=== PATIENT | female | born 1990 | race African-American/Black ===

== ENCOUNTER 2022-05-29 21:34 | Inpatient (IN) | payer MEDICARE, OTHER ==
[2022-05-29] MEDS ORDERED: HYDROmorphone 1 MG/ML 1 ML SYRINGE IM STA (22:41)
[2022-05-30] MEDS ORDERED: AMPICILLIN-SULBACTAM 3 GM in SODIUM CHLORIDE 0.9% 100 ML IVPB STA (00:03)
[2022-05-30] MEDS ORDERED: VANCOMYCIN IV PER PHARMACY 1 EACH MISC MISCELLANE PRN (00:05)
[2022-05-30] MEDS ORDERED: NALOXONE 0.4 MG/ML 1 ML VIAL IV PRN (00:06)
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
[2022-05-30] MEDS: HYDROmorphone 1 MG/ML 1 ML SYRINGE IVP PRN ×4 (00:59→10:18)
[2022-05-30] MEDS ORDERED: VANCOMYCIN 1,250 MG in SODIUM CHLORIDE 0.9% 250 ML IVPB ONE (01:00)
[2022-05-30 01:37] LABS: Anisocytosis Slight; Basophils % (A) 1 %; Eosinophils # (A) 0.1 k/uL (0-0.7); Eosinophils % (A) 1 %; HCT 29.5 % (34.0-46.0); HGB 9.4 gm/dL (11.4-16.0); Hypochromasia Slight; Lymphocytes # (A) 2.3 k/uL (1.0-4.8); Lymphocytes % (A) 31 %; MCH 26.8 pg (25.0-35.0); MCV 83.7 fL (80.0-100.0); Mean Platelet Volume 8.2; Monocytes # (A) 0.5 k/uL (0-1.0); Monocytes % (A) 7 %; Neutrophils # (A) 4.4 k/uL (1.3-7.7); Neutrophils % (A) 59 %; Platelet Count 284 k/uL (150-450); RBC 3.52 m/uL (3.80-5.40); RDW 18.6 % (11.5-15.5); WBC 7.5 k/uL (3.8-10.6)
[2022-05-30 01:45] LABS: ALT 11 U/L (4-34); AST 20 U/L (14-36); African American GFR (CKD) >90 (>60 ml/min/1.73 sqM); Albumin 3.8 g/dL (3.5-5.0); Alkaline Phosphatase 110 U/L (38-126); Anion Gap 8 mmol/L; Blood Urea Nitrogen 12 mg/dL (7-17); Calcium 8.9 mg/dL (8.4-10.2); Carbon Dioxide 21 mmol/L (22-30); Chloride 107 mmol/L (98-107); Glucose 77 mg/dL (74-99); Non-African American GFR(CKD) >90 (>60 ml/min/1.73 sqM); Potassium 3.7 mmol/L (3.5-5.1); Sodium 136 mmol/L (137-145); Total Bilirubin 0.2 mg/dL (0.2-1.3); Total Protein 7.2 g/dL (6.3-8.2)
[2022-05-30] MEDS ORDERED: HYDROmorphone 0.5 MG/0.5 ML SYRINGE IVP STA (02:04)
[2022-05-30 06:57] LABS: Appearance,Urine Clear (Clear); Bilirubin,Urine Negative (Negative); Blood,Urine Negative (Negative); Color,Urine Light Yellow; Glucose,Urine (UA) Negative (Negative); Ketones,Urine Negative (Negative); Leukocyte Esterase,Urine Negative (Negative); Nitrite,Urine Negative (Negative); PH, Urine 6.5 (5.0-8.0); Protein,Urine Negative (Negative); Specific Gravity,Urine 1.011 (1.001-1.035); Urobilinogen,Urine <2.0 mg/dL (<2.0)
[2022-05-30 07:14] LABS: Amphetamine Screen,Urine Not Detected (NotDetected); Barbiturate Screen,Urine Not Detected (NotDetected); Benzodiazepines Screen,Urine Detected (NotDetected); Cocaine Screen,Urine Not Detected (NotDetected); Methadone Screen, Urine Not Detected (NotDetected); Opiate Screen,Urine Detected (NotDetected); Oxycodone Screen, Urine Detected (NotDetected); Phencyclidine Screen,Urine Not Detected (NotDetected); Tricyclic Antidepressant,Urine Not Detected (NotDetected); Urn Cannabinoid Scrn Detected (NotDetected)
[2022-05-30] MEDS: KETOROLAC 15 MG/ML 1 ML VIAL IVP PRN ×2 (09:09→15:42)
[2022-05-30] MEDS: FAMOTIDINE 20 MG TAB PO SCH ×2 (09:09→21:08)
[2022-05-30] MEDS ORDERED: NON FORMULARY DRUG (Naloxone Hcl [Narcan] 4 MG Each) NASAL PRN (10:22)
[2022-05-30] MEDS ORDERED: SENNOSIDES 8.6 MG TAB PO PRN (10:22)
[2022-05-30] MEDS ORDERED: ONDANSETRON 4 MG TAB PO PRN (10:22)
[2022-05-30] MEDS ORDERED: polyethylene glycoL 3350 17 GM POWD.PACK PO PRN (10:22)
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
[2022-05-30] MEDS: VANCOMYCIN 1,000 MG in SODIUM CHLORIDE 0.9% 250 ML IVPB SCH ×2 (10:30→21:07)
[2022-05-30] MEDS: MORPHINE SULFATE ER 15 MG TABLET PO SCH ×2 (10:52→22:45)
--- NOTE | 2022-05-30 12:43 | US ---
EXAMINATION TYPE: US venous doppler duplex LE RT DATE OF EXAM: 05/30/2022 12:07 PM COMPARISON: NONE CLINICAL HISTORY: DVT. SIDE PERFORMED: Right TECHNIQUE: The lower extremity deep venous system is examined utilizing real time linear array sonog jasmina with graded compression, doppler sonography and color-flow sonography. VESSELS IMAGED: Common Femoral Vein Deep Femoral Vein Greater Saphenous Vein * Femoral Vein Small Saphenous Vein * (* superficial vessels) Patient states she gets calcium deposits in her skin that cause her extreme pain, unable to do comp ression images and unable to scan behind her knee at all due to patient in too much pain Right Leg: Visualized portions appear negative for DVT Multiple lymph nodes right groin with largest measuring 3.1cm IMPRESSION: 1. Right lower thyroid ultrasound negative for deep venous thrombosis. 2. Old large right inguinal lymph nodes. 3. Examination very limited due to patient symptoms.
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
[2022-05-30] MEDS: APIXABAN 5 MG TAB PO SCH ×2 (14:31→21:08)
[2022-05-30] MEDS ORDERED: ONDANSETRON 4 MG/2 ML VIAL IVP PRN (15:07)
[2022-05-30] MEDS: FLUoxetine HCL 20 MG CAP PO SCH (15:42)
[2022-05-30] MEDS: GABAPENTIN 300 MG CAP PO SCH ×2 (15:42→21:08)
[2022-05-30] MEDS: HYDROmorphone 2 MG TAB PO PRN ×2 (16:07→21:08)
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
[2022-05-30] MEDS: HYDROcodone/APAP 5-325MG 1 EACH TAB PO PRN (18:36)
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
[2022-05-30] MEDS: OLANZapine 5 MG TAB PO SCH (22:46)
[2022-05-31] MEDS: VANCOMYCIN 1,000 MG in SODIUM CHLORIDE 0.9% 250 ML IVPB SCH ×4 (03:03→18:02)
[2022-05-31] MEDS: HYDROmorphone 2 MG TAB PO PRN (07:22)
[2022-05-31] MEDS ORDERED: metHOTREXate sodium 2.5 MG TAB PO SCH (09:00)
[2022-05-31] MEDS ORDERED: VANCOMYCIN TROUGH DUE 1 EACH MISC MISCELLANE ONE (09:00)
[2022-05-31] MEDS: GABAPENTIN 300 MG CAP PO SCH ×3 (09:23→21:18)
[2022-05-31] MEDS: predniSONE 20 MG TAB PO SCH (09:23)
[2022-05-31] MEDS: FAMOTIDINE 20 MG TAB PO SCH ×2 (09:23→21:18)
[2022-05-31] MEDS: FLUoxetine HCL 20 MG CAP PO SCH (09:23)
[2022-05-31] MEDS: FOLIC ACID 1 MG TAB PO SCH (09:23)
[2022-05-31] MEDS: ENOXAPARIN 40 MG/0.4 ML SYRINGE SQ SCH (09:36)
[2022-05-31] MEDS: MORPHINE SULFATE ER 15 MG TABLET PO SCH ×2 (10:05→21:41)
--- NOTE | 2022-05-31 10:23 | P.PN ---
Subjective Progress Note Date: 05/31/22 Patient was evaluated this morning as she continues to have pain. She reports that oral pain medications are not helping her. She reports her pain is sometimes on 10 stairs her body. She describes generalized pain throughout her joints and throughout her legs due to open sores she describes are related to lupus. She feels that the pain medications she is receiving are not adequate, she feels that IV Dilaudid was helpful. She is requesting one single dose despite the fact that explained to her that really would not help with her overall picture. She denies any bowel or bladder incontinence or any acute issues with pain. She reports this pain has been chronic and she has been seen in the [facility] but has not seen a pain clinic as of yet. I reviewed her MAPS this morning and I see that she has been receiving pain medications from the [facility] since February 2022. Medications have included morphine 15 mg immediate release times a day. He was also recent prescription from [place] for a few tablets of [place] 5 mg. I do not see are not other scripts from other states. Objective - Vital Signs Vital signs: Vital Signs Temp 98.6 F 05/31/22 07:54 Pulse 75 05/31/22 07:54 Resp 17 05/31/22 07:54 BP 91/55 05/31/22 07:54 Pulse Ox 100 05/31/22 07:54 FiO2 Intake & Output 05/30/22 05/31/22 05/31/22 18:59 06:59 18:59 Weight 65.317 kg Other: # Voids 1 - Exam Gen. exam reveals a female who is in no significant distress. She is awake and alert. Cervical spine exam reveals midline alignment with free range of motion. Upper extremity strength is normal. Skin exam reveals multiple areas of scarring in the lower and upper extremities. Left upper extremity is bandaged. These areas are tender to touch. There are no significant open sores. There does not appear to be any fluctuance. There is no drainage noted. Psych exam reveals a cooperative patient. He is in no distress. She answered questions appropriately - Labs CBC & Chem 7: 05/30/22 00:50 05/30/22 00:50 Labs: Microbiology - Last 24 Hours (Table) 05/30/22 00:26 Gram Stain - Preliminary Arm - Right Wound Culture - Preliminary Presumptive MRSA 08/03/22 00:55 Blood Culture - Preliminary Blood No Growth after 24 hours Assessment and Plan Assessment: #1 chronic pain #2 possible lupus #3 skin lesions Plan: I reviewed the patient that using IV pain medications are not appropriate. At this point we could restart her home oral medications. I would recommend that she uses morphine extended release 15 mg 2 times a day as well as morphine immediate release 15 mg 2 times a day as needed. I would discontinue all other pain medications including hydrocodone and oral Dilaudid. I do not see any records of her using oral or IV Dilaudid anywhere else on her prescription history. I've explained to the patient using these pain medications would allow better control of her pain. I would begin the extended release morphine now a second dose later this evening. Yael Mendez MD Time with Patient: Less than 30
[2022-05-31 10:41] LABS: Basophils # (A) 0.04 X 10*3/uL (0.00-0.10); Basophils % (A) 0.9 %; Eosinophils # (A) 0.13 X 10*3/uL (0.04-0.35); Eosinophils % (A) 2.9 %; HCT 28.3 % (37.2-46.3); HGB 8.6 g/dL (12.0-15.0); Immature Grans, Automated 0.4 %; Lymphocytes # (A) 1.61 X 10*3/uL (0.90-5.00); MCH 25.5 pg (27.0-32.0); MCHC 30.4 g/dL (32.0-37.0); Mean Platelet Volume 10.6 fL (9.5-12.2); Monocytes # (A) 0.57 X 10*3/uL (0.20-1.00); Monocytes % (A) 12.8 %; NRBC Per 100 WBC 0 /100 WBCS (0.0-0.0); Platelet Count 305 X 10*3/uL (140-440); RBC 3.37 X 10*6/uL (4.10-5.20); RDW 18.9 % (11.5-14.5); WBC 4.47 X 10*3/uL (4.50-10.00)
[2022-05-31 11:00] LABS: ALT 10 U/L (8-44); AST 14 U/L (13-35); African American GFR (CKD) 137.8 (60.0-200.0); Albumin 3.4 g/dL (3.8-4.9); Albumin/Globulin Ratio 1.17 (1.60-3.17); Alkaline Phosphatase 81 U/L (41-126); BUN/Creat Ratio 14.83 Ratio (12.00-20.00); Blood Urea Nitrogen 8.9 mg/dL (9.0-27.0); Calcium 8.4 mg/dL (8.7-10.3); Carbon Dioxide 21.3 mmol/L (20.0-27.5); Chloride 109 mmol/L (96-109); Globulin 2.9 g/dL (1.6-3.3); Glucose 80 mg/dL (70-110); Non-African American GFR(CKD) 118.9 (60.0-200.0); Potassium 4.1 mmol/L (3.5-5.5); Sodium 139 mmol/L (135-145); Total Bilirubin <0.15 mg/dL (0.30-1.20); Total Protein 6.3 g/dL (6.2-8.2)
[2022-05-31] MEDS: HYDROcodone/APAP 5-325MG 1 EACH TAB PO PRN (11:14)
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
--- NOTE | 2022-05-31 13:40 | P.PN ---
Subjective Progress Note Date: 05/31/22 CHIEF COMPLAINT: Abscesses HISTORY OF PRESENT ILLNESS: Surgical service is following in regards to the ch ronic abscesses in patient's arms. She does report pain. She is followed by pain service they're adjusting pain medications. She also has been petitioned and is a evaluated by psychiatry service for her depression. Patient does continue to have some drainage from both arms. She does report that this is not new for her. She has been dealing with this calcium deposits since 2010. She was seen by a plastic surgeon in the past. Afebrile. WBC is 4.47 hgb 8.6 platelets 305 Patient seen and examined with Dr. Lott PHYSICAL EXAM: VITAL SIGNS: Reviewed. GENERAL: Well-developed in no acute distress. HEENT: No sclera icterus. Extraocular movements grossly intact. Moist buccal mucosa. Head is atraumatic, normocephalic. ABDOMEN: Soft. Nondistended. Nontender. NEUROLOGIC: Alert and oriented. Cranial nerves II through XII grossly intact. 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 There is chronic calcifications and scar tissue. There is an open area of ulceration on the right bicep. ASSESSMENT: 1. Abscesses of the right and left arm with active drainage 2. History of lupus 3. History of calcinosis cutis PLAN: -Recommend that patient follows up with plastic surgeon outpatient. Patient has been seen by a plastic surgeon in the past for these abscesses. These abscesses due to the calcium deposits are chronic for patient. -No surgical intervention planned -Antibiotics per ID service Physician Lens Examiner note has been reviewed by physician. Signing provider agrees with the documented findings, assessment, and plan of care. Objective - Vital Signs Vital signs: Vital Signs Temp 98.6 F 05/31/22 07:54 Pulse 100 05/31/22 11:15 Resp 17 05/31/22 07:54 BP 91/55 05/31/22 07:54 Pulse Ox 100 05/31/22 07:54 FiO2 Intake & Output 05/30/22 05/31/22 05/31/22 18:59 06:59 18:59 Output Total 0 Balance 0 Weight 65.317 kg Output: Urine 0 Other: # Voids 1 - Labs CBC & Chem 7: 05/31/22 08:17 05/31/22 08:17 Labs: Abnormal Lab Results - Last 24 Hours (Table) 05/31/22 05/31/22 Range/Units 08:17 08:17 WBC 4.47 L (4.50-10.00) X 10*3/uL RBC 3.37 L (4.10-5.20) X 10*6/uL Hgb 8.6 L (12.0-15.0) g/dL Hct 28.3 L (37.2-46.3) % MCH 25.5 L (27.0-32.0) pg MCHC 30.4 L (32.0-37.0) g/dL RDW 18.9 H (11.5-14.5) % Anion Gap 8.70 L (10.00-18.00) mmol/L BUN 8.9 L (9.0-27.0) mg/dL Calcium 8.4 L (8.7-10.3) mg/dL Total Bilirubin <0.15 L (0.30-1.20) mg/dL Albumin 3.4 L (3.8-4.9) g/dL Albumin/Globulin Ratio 1.17 L (1.60-3.17) g/dL Microbiology - Last 24 Hours (Table) 05/30/22 00:26 Gram Stain - Preliminary Arm - Right Wound Culture - Preliminary Presumptive MRSA 05/30/22 00:55 Blood Culture - Preliminary Blood No Growth after 24 hours
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
[2022-05-31] MEDS: MORPHINE SULFATE IR 15 MG TABLET PO PRN (15:35)
[2022-05-31] MEDS: OLANZapine 5 MG TAB PO SCH (21:18)
[2022-06-01] MEDS: VANCOMYCIN 1,000 MG in SODIUM CHLORIDE 0.9% 250 ML IVPB SCH ×2 (02:06→10:17)
[2022-06-01 04:33] VITALS: RESP 17
[2022-06-01] MEDS: MORPHINE SULFATE IR 15 MG TABLET PO PRN (07:01)
[2022-06-01] MEDS: FAMOTIDINE 20 MG TAB PO SCH (07:01)
[2022-06-01] MEDS: predniSONE 20 MG TAB PO SCH (07:01)
[2022-06-01] MEDS: FLUoxetine HCL 20 MG CAP PO SCH (07:01)
[2022-06-01] MEDS: GABAPENTIN 300 MG CAP PO SCH (07:01)
[2022-06-01] MEDS: FOLIC ACID 1 MG TAB PO SCH (07:01)
[2022-06-01] MEDS: ENOXAPARIN 40 MG/0.4 ML SYRINGE SQ SCH (07:02)
[2022-06-01 07:42] VITALS: BP 100/66; PULSE 86; TEMP 98
[2022-06-01] MEDS: MORPHINE SULFATE ER 15 MG TABLET PO SCH (10:18)
--- NOTE | 2022-06-02 00:21 | P.DS ---
Providers Date of admission: 05/30/22 00:06 Attending physician: Romario Bateman Consults: 05/30/22 00:06 Consult Physician Urgent Consulting Provider: Kameron Taylor Consult Reason/Comments: multiple abscesses Do you want consulting provider notified?: Yes 05/30/22 00:12 Consult Physician Urgent Consulting Provider: Aric Fu Consult Reason/Comments: depression, petitioned Do you want consulting provider notified?: Yes 05/30/22 09:00 Consult Physician Routine Consulting Provider: Zach Lott Consult Reason/Comments: abscess Do you want consulting provider notified?: Yes Primary care physician: Stated None Hospital Course: Patient left against medical advice. Blood culture came back positive for gram positive cocci and also MRSA shows resistance to bactrim which was cancelled on discharge. Discussed with patient importance of repeat cultures and staying in the hospital for vancomycin therapy she also does have port access to chest wall. Discussed the risks of discharge and advised patient medically she is not stable to discharge at this time. She is requesting to be discharged and also states she is out of all pain management medication and fixated on discharge pain medications. Advised to follow up with Dr Burr. She does have a [facility] to establish care. Patient does not want to stay in hospital. She left against medical advice. The impression and plan of care has been dictated by Samra Linda, Nurse Practitioner as directed. Dr. Geoffrey MD I have performed a history and physical examination and medical decision making of this patient, discussed the same with the dictator, and agree with the dictators assessment and plan as written, documented as a scribe. Based on total visit time, I have performed more than 50% of this visit. Patient Condition at Discharge: Undetermined Plan - Discharge Summary Discharge Rx Participant: No New Discharge Prescriptions: New OLANZapine [ZyPREXA] 5 mg PO HS #30 tab FLUoxetine HCL [PROzac] 20 mg PO DAILY #30 cap Continue Sennosides [Senokot] 8.6 mg PO DAILY PRN PRN Reason: Constipation polyethylene glycoL 3350 [Miralax] 17 gm PO DAILY PRN PRN Reason: Constipation Naloxone HCl [Narcan] 4 mg NASAL ONCE PRN PRN Reason: Overdose Morphine Sulfate ER [Ms Contin] 15 mg PO Q12H Ondansetron [Zofran] 4 mg PO TID PRN PRN Reason: Nausea And Vomiting Omeprazole 20 mg PO DAILY metHOTREXate sodium [Methotrexate] 15 mg PO TH Gabapentin 300 mg PO TID Folic Acid 1 mg PO DAILY Apixaban [Eliquis] 5 mg PO BID Alendronate Sodium [Fosamax] 70 mg PO TH Changed predniSONE [Deltasone] 40 mg PO DAILY #0 Discontinued HYDROcodone/APAP 5-325MG [[place] 5-325] 1 tab PO Q8H PRN PRN Reason: Pain Sulfamethox-Tmp 800-160Mg [Bactrim DS 800-160 mg] 1 tab PO MOWEFR HYDROmorphone [Dilaudid] 4 mg PO Q4-6H PRN PRN Reason: Pain Discharge Medication List Alendronate Sodium [Fosamax] 70 mg PO TH 05/30/22 [History] Apixaban [Eliquis] 5 mg PO BID 05/30/22 [History] Folic Acid 1 mg PO DAILY 05/30/22 [History] Gabapentin 300 mg PO TID 05/30/22 [History] Morphine Sulfate ER [Ms Contin] 15 mg PO Q12H 05/30/22 [History] Naloxone HCl [Narcan] 4 mg NASAL ONCE PRN 05/30/22 [History] Omeprazole 20 mg PO DAILY 05/30/22 [History] Ondansetron [Zofran] 4 mg PO TID PRN 05/30/22 [History] Sennosides [Senokot] 8.6 mg PO DAILY PRN 05/30/22 [History] metHOTREXate sodium [Methotrexate] 15 mg PO TH 05/30/22 [History] polyethylene glycoL 3350 [Miralax] 17 gm PO DAILY PRN 05/30/22 [History] FLUoxetine HCL [PROzac] 20 mg PO DAILY #30 cap 05/31/22 [Rx] OLANZapine [ZyPREXA] 5 mg PO HS #30 tab 05/31/22 [Rx] predniSONE [Deltasone] 40 mg PO DAILY #0 05/31/22 [Rx] Follow up Appointment(s)/Referral(s): [facility], [facility] [Other] - 06/05/22 Faith Burr MD [STAFF PHYSICIAN] - 1 Week None,Stated [Primary Care Provider] - 1-2 days Kameron Taylor MD [STAFF PHYSICIAN] - 1 Week Activity/Diet/Wound Care/Special Instructions: Patient recommended to see plastic surgeon outpatient reguarding abscesses Patient strongly advised to stay to await blood cultures Discharge/Stand Alone Forms: Outpatient Counseling Discharge Disposition: Left Against Medical Advice
== END 2022-06-01 11:25 | disposition left against medical advice (07) | DRG 603 ==
LOC: EC 21:34 → 4SSUR 05-30 00:06
PROVIDERS: ADMIT Hospitalist; ATTEND Hospitalist
DX: L02.414 Cutaneous abscess of left upper limb (principal); F32.3 Major depressive disorder, single episode, severe with psychotic features; F11.20 Opioid dependence, uncomplicated; L02.511 Cutaneous abscess of right hand; R45.851 Suicidal ideations; Z16.29 Resistance to other single specified antibiotic; B95.62 Methicillin resistant Staphylococcus aureus infection as the cause of diseases classified elsewhere; E11.9 Type 2 diabetes mellitus without complications; G89.29 Other chronic pain; I48.0 Paroxysmal atrial fibrillation; M32.9 Systemic lupus erythematosus, unspecified; Z53.29 Procedure and treatment not carried out because of patient's decision for other reasons; Z59.01 Sheltered homelessness; Z79.01 Long term (current) use of anticoagulants; Z79.83 Long term (current) use of bisphosphonates; Z79.899 Other long term (current) drug therapy; Z56.0 Unemployment, unspecified; Z28.310 Unvaccinated for COVID-19; Z28.21 Immunization not carried out because of patient refusal; Z63.4 Disappearance and death of family member; Z79.52 Long term (current) use of systemic steroids
CPT/HCPCS: 80053; 80202; 80306; 81003; 81025; 83605; 85025; 87040; 87070; 87077; 87186; 87205; 96365; 96368; 96375; 96376; 99285

== ENCOUNTER 2022-06-06 13:21 | Inpatient (IN) | payer MEDICARE, OTHER ==
--- NOTE | 2022-06-06 13:59 | ED ---
General Adult HPI - General Source: patient, EMS, RN notes reviewed Mode of arrival: EMS Limitations: no limitations <Paulino Grayson - Last Filed: 06/06/22 14:23> <April King - Last Filed: 06/06/22 18:38> - General Chief complaint: Chest Pain Stated complaint: Chest Pain Time Seen by Provider: 06/06/22 13:27 - History of Present Illness Initial comments: Patient is a pleasant 32-year-old female presenting to the emergency department with concerns for chest discomfort. Patient states she was in the hospital se veral days ago and left AGAINST MEDICAL ADVICE secondary to family emergency. Patient states she was supposed to continue IV antibiotics. Patient started developing chest discomfort yesterday. Patient describes discomfort as pressure. Patient has had this once previously with atrial fibrillation. Patient states there is some discomfort of her back as well. Patient states she does get wounds secondary to her history of dermatomyositis. (Paulino Grayson) - Related Data Home Medications Medication Instructions Recorded Confirmed Alendronate Sodium [Fosamax] 70 mg PO TH 05/30/22 06/06/22 Apixaban [Eliquis] 5 mg PO BID 05/30/22 06/06/22 Folic Acid 1 mg PO DAILY 05/30/22 06/06/22 Gabapentin 300 mg PO TID 05/30/22 06/06/22 Morphine Sulfate ER [Ms Contin] 15 mg PO Q12H 05/30/22 06/06/22 Naloxone HCl [Narcan] 4 mg NASAL ONCE PRN 05/30/22 06/06/22 Omeprazole 20 mg PO DAILY 05/30/22 06/06/22 Ondansetron [Zofran] 4 mg PO TID PRN 05/30/22 06/06/22 Sennosides [Senokot] 8.6 mg PO DAILY PRN 05/30/22 06/06/22 metHOTREXate sodium [Methotrexate] 15 mg PO TH 05/30/22 06/06/22 polyethylene glycoL 3350 [Miralax] 17 gm PO DAILY PRN 05/30/22 06/06/22 Previous Rx's Medication Instructions Recorded FLUoxetine HCL [PROzac] 20 mg PO DAILY #30 cap 05/31/22 OLANZapine [ZyPREXA] 5 mg PO HS #30 tab 05/31/22 predniSONE [Deltasone] 40 mg PO DAILY #0 05/31/22 Allergies Allergy/AdvReac Type Severity Reaction Status Date / Time No Known Allergies Allergy Verified 06/06/22 13:58 Review of Systems ROS Other: All systems not noted in ROS Statement are negative. Constitutional: Denies: fever Eyes: Denies: eye pain ENT: Denies: ear pain Respiratory: Denies: cough Cardiovascular: Reports: as per HPI, chest pain Endocrine: Denies: fatigue Gastrointestinal: Denies: abdominal pain Genitourinary: Denies: dysuria Musculoskeletal: Reports: as per HPI, back pain Skin: Reports: lesions Neurological: Denies: weakness <Paulino Grayson - Last Filed: 06/06/22 14:23> ROS Other: All systems not noted in ROS Statement are negative. <April King - Last Filed: 06/06/22 18:38> ROS Statement: Those systems with pertinent positive or pertinent negative responses have been documented in the HPI. Past Medical History Past Medical History: Atrial Fibrillation, Diabetes Mellitus Additional Past Medical History / Comment(s): lupus History of Any Multi-Drug Resistant Organisms: None Reported Past Surgical History: No Surgical Hx Reported Past Anesthesia/Blood Transfusion Reactions: Unable to Obtain Additional Past Anesthesia/Blood Transfusion Reaction / Comment(s): Pt denies ever having had surgery. Past Psychological History: No Psychological Hx Reported Past Alcohol Use History: None Reported Past Drug Use History: None Reported - Past Family History Father History Unknown: Yes Additional Family Medical History / Comment(s): Pt states she is an orphan. Mother History Unknown: Yes Additional Family Medical History / Comment(s): Pt states she is an orphan. <Paulino Grayson - Last Filed: 06/06/22 14:23> General Exam Limitations: no limitations General appearance: alert, in no apparent distress Head exam: Present: normocephalic Eye exam: Present: normal appearance Neck exam: Present: normal inspection Respiratory exam: Present: normal lung sounds bilaterally. Absent: chest wall tenderness Cardiovascular Exam: Present: regular rate, normal rhythm Expanded Peripheral pulses: 2+: Radial (R), Radial (L), Dorsalis Pedis (R), Dorsalis Pedis (L) GI/Abdominal exam: Present: soft. Absent: tenderness Extremities exam: Present: normal inspection Neurological exam: Present: alert Psychiatric exam: Present: normal affect, normal mood Skin exam: Present: other (Left posterior arm ulcer with mild purulent drainage. There is firmness near this which patient attributes to calcifications) <Paulino Grayson - Last Filed: 06/06/22 14:23> Course Vital Signs 06/06/22 06/06/22 13:30 16:43 Temperature 98 F Pulse Rate 100 95 Respiratory 20 18 Rate Blood Pressure 126/89 112/76 O2 Sat by Pulse 97 98 Oximetry EKG Findings - EKG Comments: EKG Findings:: Sinus rhythm with a rate of 76. CT 138. QRS 73. QT 385. QTC 416. Normal axis. Low QRS.. No acute ST change <Paulino Grayson - Last Filed: 06/06/22 14:23> Medical Decision Making - Lab Data Result diagrams: 06/06/22 15:33 06/06/22 15:33 <April King - Last Filed: 06/06/22 18:38> - Medical Decision Making I evaluated the patient myself. Patient given nitro and aspirin for pain. Lab studies are conducted and reviewed. D-dimer elevated at 1.4. Troponin is negative. Patient is sent for a CT which does not demonstrate a pulmonary embolism. Blood cultures are obtained and she is started on clindamycin. Patient will be admitted for history of positive blood cultures and asked pain. Spoke with Samra from [facility] who agreed to admit the patient. (April King) - Lab Data Lab Results 06/06/22 06/06/22 06/06/22 Range/Units 15:33 15:33 15:33 WBC 5.1 (3.8-10.6) k/uL RBC 3.97 (3.80-5.40) m/uL Hgb 10.5 L (11.4-16.0) gm/dL Hct 33.3 L (34.0-46.0) % MCV 84.0 (80.0-100.0) fL MCH 26.4 (25.0-35.0) pg MCHC 31.4 (31.0-37.0) g/dL RDW 18.4 H (11.5-15.5) % Plt Count 329 (150-450) k/uL MPV 7.5 Neutrophils % 64 % Lymphocytes % 23 % Monocytes % 8 % Eosinophils % 3 % Basophils % 1 % Neutrophils # 3.2 (1.3-7.7) k/uL Lymphocytes # 1.2 (1.0-4.8) k/uL Monocytes # 0.4 (0-1.0) k/uL Eosinophils # 0.1 (0-0.7) k/uL Basophils # 0.0 (0-0.2) k/uL Hypochromasia Slight Anisocytosis Slight PT 10.1 (9.0-12.0) sec INR 0.9 (<1.2) APTT 22.9 (22.0-30.0) sec D-Dimer 1.43 H (<0.60) mg/L FEU Sodium 136 L (137-145) mmol/L Potassium 4.4 (3.5-5.1) mmol/L Chloride 104 (98-107) mmol/L Carbon Dioxide 21 L (22-30) mmol/L Anion Gap 11 mmol/L BUN 14 (7-17) mg/dL Creatinine 0.51 L (0.52-1.04) mg/dL Est GFR (CKD-EPI)AfAm >90 (>60 ml/min/1.73 sqM) Est GFR (CKD-EPI)NonAf >90 (>60 ml/min/1.73 sqM) Glucose 78 (74-99) mg/dL Calcium 8.8 (8.4-10.2) mg/dL Total Bilirubin 0.4 (0.2-1.3) mg/dL AST 21 (14-36) U/L ALT 15 (4-34) U/L Alkaline Phosphatase 97 (38-126) U/L Troponin I (0.000-0.034) ng/mL Total Protein 7.6 (6.3-8.2) g/dL Albumin 4.0 (3.5-5.0) g/dL 06/06/22 Range/Units 15:33 WBC (3.8-10.6) k/uL RBC (3.80-5.40) m/uL Hgb (11.4-16.0) gm/dL Hct (34.0-46.0) % MCV (80.0-100.0) fL MCH (25.0-35.0) pg MCHC (31.0-37.0) g/dL RDW (11.5-15.5) % Plt Count (150-450) k/uL MPV Neutrophils % % Lymphocytes % % Monocytes % % Eosinophils % % Basophils % % Neutrophils # (1.3-7.7) k/uL Lymphocytes # (1.0-4.8) k/uL Monocytes # (0-1.0) k/uL Eosinophils # (0-0.7) k/uL Basophils # (0-0.2) k/uL Hypochromasia Anisocytosis PT (9.0-12.0) sec INR (<1.2) APTT (22.0-30.0) sec D-Dimer (<0.60) mg/L FEU Sodium (137-145) mmol/L Potassium (3.5-5.1) mmol/L Chloride (98-107) mmol/L Carbon Dioxide (22-30) mmol/L Anion Gap mmol/L BUN (7-17) mg/dL Creatinine (0.52-1.04) mg/dL Est GFR (CKD-EPI)AfAm (>60 ml/min/1.73 sqM) Est GFR (CKD-EPI)NonAf (>60 ml/min/1.73 sqM) Glucose (74-99) mg/dL Calcium (8.4-10.2) mg/dL Total Bilirubin (0.2-1.3) mg/dL AST (14-36) U/L ALT (4-34) U/L Alkaline Phosphatase (38-126) U/L Troponin I <0.012 (0.000-0.034) ng/mL Total Protein (6.3-8.2) g/dL Albumin (3.5-5.0) g/dL Disposition <Paulino Grayson - Last Filed: 06/06/22 14:23> Is patient prescribed a controlled substance at d/c from ED?: No Time of Disposition: 18:38 Decision to Admit Reason: Admit from EC Decision Date: 06/06/22 Decision Time: 18:38 <April King - Last Filed: 06/06/22 18:38> Clinical Impression: Abscess of multiple sites, Positive blood culture, Chest pain Disposition: ADMITTED IP TO THIS [facility] Condition: Stable Referrals: None,Stated [Primary Care Provider] - 1-2 days
--- NOTE | 2022-06-06 14:21 | XR ---
EXAMINATION TYPE: XR chest 2V DATE OF EXAM: 06/06/2022 2:06 PM COMPARISON: None TECHNIQUE: XR chest 2V Frontal and lateral views of the chest. CLINICAL INDICATION:Female, 32 years old with history of Fever; FINDINGS: Lungs/Pleura: There is no evidence of pleural effusion, focal consolidation, or pneumothorax. Pulmonary vascularity: Unremarkable. Heart/mediastinum: Cardiomediastinal silhouette is unremarkable. Musculoskeletal/soft tissues: No acute osseous pathology. Innumerable hyperdense soft tissue calcific ations demonstrated throughout the bilateral chest and visualized upper extremities. Lines/Tubes: Right chest wall Mediport catheter terminates in the low SVC. IMPRESSION: * No acute cardiopulmonary disease/process. * Innumerable hyperdense soft tissue calcifications identified throughout the bilateral chest and vi sualized upper extremities. Correlation with clinical history is recommended.
[2022-06-06 15:56] LABS: Anisocytosis Slight; HCT 33.3 % (34.0-46.0); HGB 10.5 gm/dL (11.4-16.0); Hypochromasia Slight; MCH 26.4 pg (25.0-35.0); MCHC 31.4 g/dL (31.0-37.0); Mean Platelet Volume 7.5; Neutrophils % (A) 64 %; Platelet Count 329 k/uL (150-450); RBC 3.97 m/uL (3.80-5.40); RDW 18.4 % (11.5-15.5); WBC 5.1 k/uL (3.8-10.6)
[2022-06-06 15:57] LABS: Basophils % (A) 1 %; Eosinophils # (A) 0.1 k/uL (0-0.7); Eosinophils % (A) 3 %; Lymphocytes # (A) 1.2 k/uL (1.0-4.8); Lymphocytes % (A) 23 %; Monocytes # (A) 0.4 k/uL (0-1.0); Monocytes % (A) 8 %; Neutrophils # (A) 3.2 k/uL (1.3-7.7)
[2022-06-06] MEDS ORDERED: NITROGLYCERIN SL TABS 0.4 MG TAB SUBLINGUAL STA (16:05)
[2022-06-06 16:07] LABS: INR 0.9 (<1.2)
[2022-06-06 16:08] LABS: Partial Thromboplastin Time 22.9 sec (22.0-30.0); Prothrombin Time 10.1 sec (9.0-12.0)
[2022-06-06 16:15] LABS: ALT 15 U/L (4-34); AST 21 U/L (14-36); African American GFR (CKD) >90 (>60 ml/min/1.73 sqM); Alkaline Phosphatase 97 U/L (38-126); Anion Gap 11 mmol/L; Blood Urea Nitrogen 14 mg/dL (7-17); Calcium 8.8 mg/dL (8.4-10.2); Carbon Dioxide 21 mmol/L (22-30); Chloride 104 mmol/L (98-107); Glucose 78 mg/dL (74-99); Non-African American GFR(CKD) >90 (>60 ml/min/1.73 sqM); Potassium 4.4 mmol/L (3.5-5.1); Sodium 136 mmol/L (137-145); Total Bilirubin 0.4 mg/dL (0.2-1.3); Total Protein 7.6 g/dL (6.3-8.2)
--- NOTE | 2022-06-06 17:22 | CT ---
EXAMINATION TYPE: CT chest angio for PE CT DLP: 252.1 mGycm, Automated exposure control for dose reduction was used. DATE OF EXAM: 06/06/2022 5:00 PM COMPARISON: Chest radiograph from same day. CLINICAL INDICATION:Female, 32 years old with history of elevated d-dimer; Elevated d-dimer chest karen n Hx afib TECHNIQUE/CONTRAST: CTA scan of the thorax is performed with IV Contrast, patient injected with 100 mL of Isovue 370, pul monary embolism protocol. MIP images are created and reviewed. FINDINGS: Pulmonary Artery: There is no evidence for a filling defect within the pulmonary vasculature to sugge st acute pulmonary embolism. The pulmonary artery is of normal size. Lungs/Pleura: No evidence of focal consolidation, pleural effusion or pneumothorax. Airway: Large airways are patent. Heart: Heart is within normal limits for size.. Vasculature: No evidence of aortic aneurysm. [id number] with distal tip projecting at the superior vena cava. Mediastinum: No gross evidence of adenopathy. Musculoskeletal: No acute osseous abnormalities Soft Tissues: Diffuse subcutaneous calcifications are seen throughout the skin. Lower neck: No significant findings. Upper Abdomen: No significant findings. IMPRESSION: 1. No evidence of pulmonary embolism. 2. Diffuse scattered subcutaneous calcifications.
[2022-06-06] MEDS ORDERED: HYDROmorphone 1 MG/ML 1 ML SYRINGE IVP STA (18:18)
[2022-06-06] MEDS ORDERED: CLINDAMYCIN 600 MG/50 ML-D5W 600 MG in DEXTROSE/WATER 1 50ML.BAG IVPB STA (18:29)
[2022-06-06] MEDS ORDERED: ASPIRIN 81 MG PO STA (18:33)
[2022-06-06] MEDS ORDERED: NALOXONE 0.4 MG/ML 1 ML VIAL IV PRN (18:38)
[2022-06-06] MEDS ORDERED: ONDANSETRON 4 MG TAB PO PRN (19:07)
[2022-06-06] MEDS: MORPHINE SULFATE ER 15 MG TABLET PO SCH (20:44)
[2022-06-06] MEDS ORDERED: OLANZapine 5 MG TAB PO SCH (21:00)
[2022-06-06] MEDS: GABAPENTIN 300 MG CAP PO SCH (21:18)
[2022-06-06] MEDS: APIXABAN 5 MG TAB PO SCH (23:43)
[2022-06-06] MEDS: MORPHINE SULFATE IR 15 MG TABLET PO PRN (23:43)
[2022-06-07] MEDS ORDERED: CLINDAMYCIN 600 MG/50 ML-D5W 600 MG in DEXTROSE/WATER 1 50ML.BAG IVPB SCH (03:00)
[2022-06-07] MEDS: PANTOPRAZOLE 40 MG TABLET PO SCH (06:49)
[2022-06-07] MEDS: MORPHINE SULFATE ER 15 MG TABLET PO SCH ×2 (08:51→20:43)
[2022-06-07] MEDS: GABAPENTIN 300 MG CAP PO SCH ×3 (08:51→20:45)
[2022-06-07] MEDS: MORPHINE SULFATE IR 15 MG TABLET PO PRN ×2 (08:52→18:30)
[2022-06-07] MEDS: FOLIC ACID 1 MG TAB PO SCH (08:52)
[2022-06-07] MEDS: APIXABAN 5 MG TAB PO SCH ×2 (08:52→20:45)
[2022-06-07] MEDS ORDERED: FLUoxetine HCL 20 MG CAP PO SCH (09:00)
[2022-06-07 09:03] LABS: Anisocytosis Slight; Basophils % (A) 1 %; Eosinophils # (A) 0.2 k/uL (0-0.7); Eosinophils % (A) 4 %; HCT 30.6 % (34.0-46.0); HGB 9.6 gm/dL (11.4-16.0); Hypochromasia Slight; Lymphocytes # (A) 1.2 k/uL (1.0-4.8); Lymphocytes % (A) 28 %; MCH 26.8 pg (25.0-35.0); MCHC 31.4 g/dL (31.0-37.0); MCV 85.4 fL (80.0-100.0); Mean Platelet Volume 7.5; Monocytes # (A) 0.4 k/uL (0-1.0); Monocytes % (A) 9 %; Neutrophils # (A) 2.4 k/uL (1.3-7.7); Neutrophils % (A) 56 %; Platelet Count 293 k/uL (150-450); RBC 3.58 m/uL (3.80-5.40); RDW 18.5 % (11.5-15.5); WBC 4.2 k/uL (3.8-10.6)
[2022-06-07] MEDS ORDERED: HYDROmorphone 0.5 MG/0.5 ML SYRINGE IVP STA (09:05)
[2022-06-07] MEDS ORDERED: SODIUM CHLORIDE 0.9% 500 ML 500 ML IV ONE (09:06)
[2022-06-07] MEDS ORDERED: HYDROmorphone 1 MG/ML 1 ML SYRINGE IVP STA (09:16)
--- NOTE | 2022-06-07 09:25 | P.HPIM ---
History of Present Illness This is a pleasant 52 years old -[place] Citizen female with past medical history of atrial fibrillation on Eliquis, systemic lupus erythematosus versus dermatomyositis and she is currently on a prednisone and methotrexate, chronic pain syndrome on MS Contin 15 mg twice daily, gabapentin, depression on Prozac and Zyprexa Patient was recently in this facility 05/30-06/01 when she left AMA for family emergency as she confirms today She has positive blood culture from 05/30 for MRSA and another possible culture from 05/30 for staph epidermidis and coagulase negative the staph Patient was sitting, intubated looks comfortable not in distress. Patient states she came to the hospital because she has a lot of chest pain, a lot of arm pain, pain between shoulder blades, and her left arm and legs and all over. She is also complaining of from diarrhea about 4 times per day with no blood, dark Green or brown in color, it has been going on for the last 2 days. No abdominal pain or nausea vomiting. She denies urinary symptoms, no headache or dizziness or weakness or numbness. She smokes SOMETIMES hookah and she was counseled to quit and she agrees and she agrees to the nicotine patch. She denies alcohol or illicit drugs. She states she has history of breast spelled E, she was diagnosed by a physician and [facility] in 2010 when she had menarche rash, generalized weakness and multiple skin lesions and opening since then. Currently she has alt of scar tissue in her arms, shoulders, proximal thighs. She has 2 open w ounds about half inch in diameter in both left and right upper arm with no surrounding cellulitis but there is some yellow purulent discharge but scant. Also the result of scar tissue on the right leg and no open wounds (very tiny pinpoint wound on the right leg, it did not feel to be of significance for patient's symptomatology) Patient states that she supposed to be on methotrexate, folic acid, prednisone, also she supposed to be an Eliquis for her A. fib. She has no video technician and her if it has been managed by her PCP. She could not remember the name of her PCP but states that he is in [facility]. She feels depressed but she denies homicidal or suicidal ideation, no hallucina tion Vitals looks stable and patient is afebrile. Unremarkable CBC, INR, BMP and Liver Enzymes. Troponin Is Negative Less Than 0.012. D-Dimer Elevated 1.4. CTA of the chest is negative for PE, diffuse scattered subcutaneous calcification EKG showing normal sinus rhythm at [address]-T changes On admission patient was started on clindamycin and received Dilaudid IV 1 mg 1 She did see pain management in consultation and recommendations are for discontinuation of pain medications with exception of Morphine 15 mg extended release twice a day and to use Morphine IR 15 mg twice a day as needed for breakthrough pain Review of Systems Review of systems CONSTITUTIONAL: No fever, no malaise, no fatigue. HEENT: No recent visual problems or hearing problems. Denied any sore throat. CARDIOVASCULAR: No orthopnea, PND, no palpitations, no syncope. PULMONARY: No shortness of breath, no cough, no hemoptysis. GASTROINTESTINAL: no nausea, no vomiting, no abdominal pain. Normoactive bowel sounds. NEUROLOGICAL: No headaches, no weakness, no numbness. HEMATOLOGICAL: Denies any bleeding or petechiae. GENITOURINARY: Denies any burning micturition, frequency, or urgency. MUSCULOSKELETAL/RHEUMATOLOGICAL: Denies any joint pain, swelling, or any muscle pain. ENDOCRINE: Denies any polyuria or polydipsia. Past Medical History Past Medical History: Atrial Fibrillation, Diabetes Mellitus Additional Past Medical History / Comment(s): lupus History of Any Multi-Drug Resistant Organisms: None Reported Date of last positivie culture/infection: 05/30/2022 MDRO Source:: right arm Past Surgical History: No Surgical Hx Reported Additional Past Surgical History / Comment(s): debridements of wounds Past Anesthesia/Blood Transfusion Reactions: Unable to Obtain Additional Past Anesthesia/Blood Transfusion Reaction / Comment(s): Pt denies ever having had surgery. Past Psychological History: No Psychological Hx Reported Past Alcohol Use History: None Reported Past Drug Use History: None Reported - Past Family History Father History Unknown: Yes Additional Family Medical History / Comment(s): Pt states she is an orphan. Mother History Unknown: Yes Additional Family Medical History / Comment(s): Pt states she is an orphan. Medications and Allergies Home Medications Medication Instructions Recorded Confirmed Type Alendronate Sodium [Fosamax] 70 mg PO TH 05/30/22 06/06/22 History Apixaban [Eliquis] 5 mg PO BID 05/30/22 06/06/22 History Folic Acid 1 mg PO DAILY 05/30/22 06/06/22 History Gabapentin 300 mg PO TID 05/30/22 06/06/22 History Morphine Sulfate ER [Ms Contin] 15 mg PO Q12H 05/30/22 06/06/22 History Naloxone HCl [Narcan] 4 mg NASAL ONCE PRN 05/30/22 06/06/22 History Omeprazole 20 mg PO DAILY 05/30/22 06/06/22 History Ondansetron [Zofran] 4 mg PO TID PRN 05/30/22 06/06/22 History Sennosides [Senokot] 8.6 mg PO DAILY PRN 05/30/22 06/06/22 History metHOTREXate sodium [Methotrexate] 15 mg PO TH 05/30/22 06/06/22 History polyethylene glycoL 3350 [Miralax] 17 gm PO DAILY PRN 05/30/22 06/06/22 History FLUoxetine HCL [PROzac] 20 mg PO DAILY #30 cap 05/31/22 06/06/22 Rx OLANZapine [ZyPREXA] 5 mg PO HS #30 tab 05/31/22 06/06/22 Rx predniSONE [Deltasone] 40 mg PO DAILY #0 05/31/22 06/06/22 Rx Allergies Allergy/AdvReac Type Severity Reaction Status Date / Time No Known Allergies Allergy Verified 06/06/22 13:58 Physical Exam Vitals: Vital Signs Temp Pulse Pulse Pulse Resp BP BP 06/07/22 03:56 97.5 F L 73 18 100/66 06/07/22 00:26 98.4 F 97 16 109/72 06/06/22 22:05 98.0 F 99 16 102/56 06/06/22 21:20 69 16 132/107 06/06/22 19:38 67 64 16 119/80 06/06/22 16:43 95 18 112/76 06/06/22 13:30 98 F 100 20 126/89 Pulse Ox 06/07/22 03:56 100 06/07/22 00:26 100 06/06/22 22:05 99 06/06/22 21:20 98 06/06/22 19:38 100 06/06/22 16:43 98 06/06/22 13:30 97 Intake and Output 06/06/22 06/06/2222 14:59 22:59 06:59 Other: Weight 65.317 kg 65.317 kg GENERAL: The patient is alert and oriented x3, not in any acute distress. Well developed, well nourished. HEENT: Pupils are round and equally reacting to light. EOMI. No scleral icterus. No conjunctival pallor. Normocephalic, atraumatic. No pharyngeal erythema. No thyromegaly. CARDIOVASCULAR: S1 and S2 present. No murmurs, rubs, or gallops. PULMONARY: Chest is clear to auscultation, no wheezing or crackles. ABDOMEN: Soft, nontender, nondistended, normoactive bowel sounds. No palpable organomegaly. Multiple calcified spots in her abdominal wall(patient states this is a chronic) MUSCULOSKELETAL: No joint swelling or deformity. EXTREMITIES: No cyanosis, clubbing, or pedal edema. NEUROLOGICAL: Gross neurological examination did not reveal any focal deficits. -SKIN: No rashes. no petechiae. Multiple scar tissue in both proximal upper and lower extremities. Bilateral open wounds with some purulent discharge on both arms about half inch in diameter, no surrounding cellulitis. No significant wounds in the lower extremities, only scar tissue Results CBC & Chem 7: 06/07/22 08:42 06/06/22 15:33 Labs: Abnormal Lab Results - Last 24 Hours (Table) 06/06/22 06/06/22 06/06/22 Range/Units 15:33 15:33 15:33 Hgb 10.5 L (11.4-16.0) gm/dL Hct 33.3 L (34.0-46.0) % RDW 18.4 H (11.5-15.5) % D-Dimer 1.43 H (<0.60) mg/L FEU Sodium 136 L (137-145) mmol/L Carbon Dioxide 21 L (22-30) mmol/L Creatinine 0.51 L (0.52-1.04) mg/dL Microbiology - Last 24 Hours (Table) 06/06/22 15:33 Wound Culture - Preliminary Arm - Left Thrombosis Risk Factor Assmnt - Choose All That Apply Any of the Below Risk Factors Present?: Yes Each Factor Represents 1 point: Obesity (BMI >25), Swollen legs (current) Each Risk Factor Represents 3 Points: History of DVT/PE Thrombosis Risk Factor Assessment Total Risk Factor Score: 5 Thrombosis Risk Factor Assessment Level: High Risk Assessment and Plan Assessment: Chest pain, rule out cardiac causes Positive blood culture with staph suspicious for bacteremia. Multiple ulceration on both upper extremities and right lower extremity History of systemic lupus erythematosus Depression Noncompliance, with recent leaving AMA from this facility Chronic pain syndromes that follow-up with clinic clinic Paroxysmal atrial fibrillation on Eliquis Plan: This is a pleasant 52 years old female who presents with positive blood culture and multiple extremity ulceration, chest pain Follow-up her repeat Blood culture Infectious disease consult Psychiatric consult cardiology team consult give one time bolus of 500 ml of NS, monitor BP Check for C. diff c/w pain management referred for manager sap as an outpatient, patient informed and she agrees to follow up with Dr. gracia in one week after discharge risks and benefits and importance of compliance to medication and station are explained for the patient and she verbalized understanding and acceptance Labs and medication were reviewed.. Continue same treatment. Continue with symptomatic treatment. Resume home medication. Monitor lytes and vitals. DVT and GI prophylaxis. Further recommendations as per clinical course of the patient DVT prophylaxis: Eliquis GI Prophylaxis: Ppi Prognosis is guarded
[2022-06-07 09:37] LABS: African American GFR (CKD) >90 (>60 ml/min/1.73 sqM); Anion Gap 10 mmol/L; Blood Urea Nitrogen 9 mg/dL (7-17); Calcium 8.4 mg/dL (8.4-10.2); Carbon Dioxide 23 mmol/L (22-30); Chloride 103 mmol/L (98-107); Glucose 80 mg/dL (74-99); Non-African American GFR(CKD) >90 (>60 ml/min/1.73 sqM); Potassium 3.7 mmol/L (3.5-5.1); Sodium 136 mmol/L (137-145)
[2022-06-07 10:03] LABS: HCG,Qualitative Serum Not Detected
[2022-06-07] MEDS ORDERED: VANCOMYCIN IV PER PHARMACY 1 EACH MISC MISCELLANE PRN (10:18)
[2022-06-07] MEDS: NICOTINE 21MG/24HR PATCH TRANSDERM SCH (10:31)
--- NOTE | 2022-06-07 11:25 | CA ---
Transthoracic Echo Report Name: Hari Huitron Age: 32 Gender: F : 1990 Exam Date: 06/07/2022 09:50 Exam Location: [facility] Ht (in): 61 Wt (lb): 144 Ordering Physician: Marce Shea Attending/Referring Phys: [id number], Monse Motion Picture Projectionist Apprentice Jenifer Gunter RDCS Procedure CPT: Indications: LV function Cardiac Hx: Technical Quality: Good Contrast 1: Total Dose (mL): Contrast 2: Total Dose (mL): MEASUREMENTS (Male / Female) Normal Values 2D ECHO LV Diastolic Diameter PLAX 3.8 cm 4.2 - 5.9 / 3.9 - 5.3 cm LV Systolic Diameter PLAX 1.7 cm IVS Diastolic Thickness 1.0 cm 0.6 - 1.0 / 0.6 - 0.9 cm LVPW Diastolic Thickness 1.3 cm 0.6 - 1.0 / 0.6 - 0.9 cm LV Relative Wall Thickness 0.6 M-MODE Aortic Root Diameter MM 2.9 cm LA Systolic Diameter MM 2.4 cm LA Ao Ratio MM 0.8 MV E Point Septal Separation 0.6 cm AV Cusp Separation MM 1.4 cm DOPPLER AV Peak Velocity 125.0 cm/s AV Peak Gradient 6.2 mmHg MV Area PHT 4.9 cm??? MR Peak Velocity 153.7 cm/s MR Peak Gradient 9.4 mmHg Mitral E Point Velocity 91.2 cm/s Mitral A Point Velocity 68.0 cm/s Mitral E to A Ratio 1.3 MV Deceleration Time 155.1 ms TR Peak Velocity 208.6 cm/s TR Peak Gradient 17.4 mmHg Right Ventricular Systolic Press 22.0 mmHg FINDINGS Left Ventricle Mildly increased posterior wall thickness. Left ventricular ejection fraction is estimated at 55-60 %. Left ventricular cavity size normal. Right Ventricle The right ventricle is normal in size and function. Right Atrium The right atrium is normal in size. Left Atrium The left atrium is normal in size. Mitral Valve Structurally normal mitral valve without significant stenosis or prolapse. There is trace mitral regurgitation. Aortic Valve Structurally normal aortic valve without significant sclerosis or stenosis. There is no aortic regurgitation. Tricuspid Valve Structurally normal tricuspid valve without significant stenosis. Pulmonary artery systolic pressure is normal. Trace tricuspid regurgitation. Pulmonic Valve Structurally normal pulmonic valve without significant stenosis. There is no pulmonic regurgitation. Pericardium Normal pericardium without effusion. Aorta Normal aortic root dimension. CONCLUSIONS Normal LV systolic function Previewed by: Dr. Jamel Casey MD (Electronically Signed) Final Date: 07 June 2022 11:24
--- NOTE | 2022-06-07 11:31 | P.CRDCN ---
History of Present Illness History of present illness: HISTORY OF PRESENT ILLNESS: This is a 32-year-old female with a past medical history significant for paroxysmal atrial fibrillation and PE. Patient does not follow with a nursing clinical director. We have been asked to see the patient in consultation for chest pain. Patient examined at the bedside. Patient states she has been having chest pain for the past 2 days. She states the pain is in the middle of her chest and also in between her shoulder blades. She denies any other radiation of the pain. She denies any shortness of breath. She states the pain has been interm ittent. She states the pain gets better when she relaxes and does not talk. * EKG reveals sinus mechanism with early repolarization noted. No signs of acute ischemia * Chest xray negative for acute process * Laboratory data: WBC 4.2. Hemoglobin 9.6. Platelet count 293. Sodium 136. Potassium 3.7. BUN 9. Creatinine 0.58. Troponin negative 2. * Current home cardiac medications include Eliquis 5 mg twice a day REVIEW OF SYSTEMS: At the time of my exam: CONSTITUTIONAL: Denies fever or chills. HEENT: Denies blurred vision, vision changes, or eye pain. Denies hemoptysis CARDIOVASCULAR: Denies chest pain. Denies orthopnea. Denies PND. Denies palpitations RESPIRATORY: Denies shortness of breath. GASTROINTESTINAL: Denies abdominal pain. Denies nausea or vomiting. HEMATOLOGIC: Denies bleeding disorders. GENITOURINARY: Denies any blood in urine. SKIN: Denies pruitis. Denies rash. PHYSICAL EXAM: VITAL SIGNS: Reviewed. GENERAL: Well-developed in no acute distress. HEENT: Head is normocephalic. Pupils are equal, round. Sclerae anicteric. Mucous membranes of the mouth are moist. Neck supple. No JVD or thyromegaly LUNGS: Respirations even and unlabored. Lungs essentially clear to auscultation bilaterally. HEART: Regular rate and rhythm. S1 and S2 heard. ABDOMEN: Soft. Nondistended. Nontender. EXTREMITIES: Normal range of motion. No clubbing or cyanosis. Peripheral pulses intact. No lower extremity edema NEUROLOGIC: Awake and alert. Oriented x 3. ASSESSMENT: Chest pain, atypical, troponin negative 2 Paroxysmal atrial fibrillation History of PE, on anticoagulation with Eliquis Left upper extremity wounds, on antibiotics PLAN: An acute coronary event has been ruled out Obtain 2-D echo to assess cardiac structure and function Continue Eliquis Further recommendations pending patient's course Nurse practitioner note has been reviewed by physician. Signing provider agrees with the documented findings, assessment, and plan of care. Past Medical History Past Medical History: Atrial Fibrillation, Diabetes Mellitus Additional Past Medical History / Comment(s): lupus History of Any Multi-Drug Resistant Organisms: None Reported Date of last positivie culture/infection: 05/30/2022 MDRO Source:: right arm Past Surgical History: No Surgical Hx Reported Additional Past Surgical History / Comment(s): debridements of wounds Past Anesthesia/Blood Transfusion Reactions: Unable to Obtain Additional Past Anesthesia/Blood Transfusion Reaction / Comment(s): Pt denies ever having had surgery. Past Psychological History: No Psychological Hx Reported Past Alcohol Use History: None Reported Past Drug Use History: None Reported - Past Family History Father History Unknown: Yes Additional Family Medical History / Comment(s): Pt states she is an orphan. Mother History Unknown: Yes Additional Family Medical History / Comment(s): Pt states she is an orphan. Medications and Allergies Home Medications Medication Instructions Recorded Confirmed Type Alendronate Sodium [Fosamax] 70 mg PO TH 05/30/22 06/06/22 History Apixaban [Eliquis] 5 mg PO BID 05/30/22 06/06/22 History Folic Acid 1 mg PO DAILY 05/30/22 06/06/22 History Gabapentin 300 mg PO TID 05/30/22 06/06/22 History Morphine Sulfate ER [Ms Contin] 15 mg PO Q12H 05/30/22 06/06/22 History Naloxone HCl [Narcan] 4 mg NASAL ONCE PRN 05/30/22 06/06/22 History Omeprazole 20 mg PO DAILY 05/30/22 06/06/22 History Ondansetron [Zofran] 4 mg PO TID PRN 05/30/22 06/06/22 History Sennosides [Senokot] 8.6 mg PO DAILY PRN 05/30/22 06/06/22 History metHOTREXate sodium [Methotrexate] 15 mg PO TH 05/30/22 06/06/22 History polyethylene glycoL 3350 [Miralax] 17 gm PO DAILY PRN 05/30/22 06/06/22 History FLUoxetine HCL [PROzac] 20 mg PO DAILY #30 cap 05/31/22 06/06/22 Rx OLANZapine [ZyPREXA] 5 mg PO HS #30 tab 05/31/22 06/06/22 Rx predniSONE [Deltasone] 40 mg PO DAILY #0 05/31/22 06/06/22 Rx Allergies Allergy/AdvReac Type Severity Reaction Status Date / Time No Known Allergies Allergy Verified 06/06/22 13:58 Physical Exam Vitals: Vital Signs Temp Pulse Pulse Pulse Resp BP BP 06/07/22 03:56 97.5 F L 73 18 100/66 06/07/22 00:26 98.4 F 97 16 109/72 06/06/22 22:05 98.0 F 99 16 102/56 06/06/22 21:20 69 16 132/107 06/06/22 19:38 67 64 16 119/80 06/06/22 16:43 95 18 112/76 06/06/22 13:30 98 F 100 20 126/89 Pulse Ox 06/07/22 03:56 100 06/07/22 00:26 100 06/06/22 22:05 99 06/06/22 21:20 98 06/06/22 19:38 100 06/06/22 16:43 98 06/06/22 13:30 97 Intake and Output 06/06/22 06/07/22 06/07/22 22:59 06:59 14:59 Other: # Voids 2 Weight 65.317 kg Results 06/07/22 08:42 06/07/22 08:42 Cardiac Enzymes 06/06/22 06/06/22 06/06/22 Range/Units 15:33 15:33 22:04 AST 21 (14-36) U/L Troponin I <0.012 <0.012 (0.000-0.034) ng/mL Coagulation 06/06/22 Range/Units 15:33 PT 10.1 (9.0-12.0) sec APTT 22.9 (22.0-30.0) sec CBC 06/06/22 Range/Units 15:33 WBC 5.1 (3.8-10.6) k/uL RBC 3.97 (3.80-5.40) m/uL Hgb 10.5 L (11.4-16.0) gm/dL Hct 33.3 L (34.0-46.0) % Plt Count 329 (150-450) k/uL Comprehensive Metabolic Panel 06/06/22 Range/Units 15:33 Sodium 136 L (137-145) mmol/L Potassium 4.4 (3.5-5.1) mmol/L Chloride 104 (98-107) mmol/L Carbon Dioxide 21 L (22-30) mmol/L BUN 14 (7-17) mg/dL Creatinine 0.51 L (0.52-1.04) mg/dL Glucose 78 (74-99) mg/dL Calcium 8.8 (8.4-10.2) mg/dL AST 21 (14-36) U/L ALT 15 (4-34) U/L Alkaline Phosphatase 97 (38-126) U/L Total Protein 7.6 (6.3-8.2) g/dL Albumin 4.0 (3.5-5.0) g/dL Current Medications Generic Name Dose Route Start Last Admin Trade Name Freq PRN Reason Stop Dose Admin Apixaban 5 mg 06/06/22 21:00 06/07/22 08:52 Apixaban 5 Mg Tab PO 5 mg BID JEAN CLAUDE Administration Protocol Fluoxetine HCl 20 mg 06/07/22 09:00 06/07/22 08:51 Fluoxetine Hcl 20 Mg Cap PO 20 mg DAILY JEAN CLAUDE Administration Folic Acid 1 mg 06/07/22 09:00 06/07/22 08:52 Folic Acid 1 Mg Tab PO 1 mg DAILY JEAN CLAUDE Administration Gabapentin 300 mg 06/06/22 22:00 06/07/22 08:51 Gabapentin 300 Mg Cap PO 300 mg TID JEAN CLAUDE Administration Clindamycin Phosphate 600 mg/ 50 mls @ 50 mls/hr 06/07/22 03:00 06/07/22 03:48 IV Solution IVPB 50 mls/hr Q8H JEAN CLAUDE Administration Morphine Sulfate 15 mg 06/06/22 21:00 06/07/22 08:51 Morphine Sulfate Er 15 Mg Tablet PO 15 mg Q12HR JEAN CLAUDE Administration Protocol Morphine Sulfate 15 mg 06/06/22 23:08 06/07/22 08:52 Morphine Sulfate Ir 15 Mg Tablet PO 15 mg BID PRN Administration Pain Naloxone HCl 0.2 mg 06/06/22 18:38 Naloxone 0.4 Mg/Ml 1 Ml Vial IV Q2M PRN Opioid Reversal Olanzapine 5 mg 06/06/22 21:00 06/06/22 23:43 Olanzapine 5 Mg Tab PO 5 mg HS JEAN CLAUDE Administration Ondansetron HCl 4 mg 06/06/22 19:07 Ondansetron 4 Mg Tab PO TID PRN Nausea And Vomiting Pantoprazole Sodium 40 mg 06/07/22 07:30 06/07/22 06:49 Pantoprazole 40 Mg Tablet PO 40 mg [id number] JEAN CLAUDE Administration Intake and Output 06/06/22 06/07/22 06/07/22 22:59 06:59 14:59 Other: # Voids 2 Weight 65.317 kg 06/06/22 15:33 06/06/22 15:33
[2022-06-07] MEDS: VANCOMYCIN 1,250 MG in SODIUM CHLORIDE 0.9% 250 ML IVPB SCH ×2 (12:32→18:31)
[2022-06-07] MEDS ORDERED: FLUoxetine HCL 20 MG CAP PO STA (13:23)
--- NOTE | 2022-06-07 13:34 | P.CN ---
Psychiatric Consult - . Consult date: 06/07/22 Consult:: 06/07/22 12:28 IDENTIFYING DATA: This patient is a 32-year-old -[place] female who is currently living in [place] [facility] since . She has 2 kids. REASON FOR REFERRAL: Psychiatry was consulted for depression and noncompliance HISTORY OF PRESENT ILLNESS: The patient presented to the hospital yesterday complaining of chest discomfort. Patient has a history of lupus and also multiple wounds and was staying [place] [facility] [place]. Patient claimed that the chest discomfort has been going on for the past day and was admitted medically about a week ago and had to leave AGAINST MEDICAL ADVICE at that time to treat family emergency. Patient was seen in her previous admission by psychiatry, entry writer did the full psychiatric evaluation at that time. Patient was started on Zyprexa and Prozac. On this visit, cardiology has been following in ordering tests to rule out acute coronary syndrome. Patient's nurse states that patient has been doing fairly well however has been complaining of pain from her wounds. Patient was seen today eating her lunch and watching television and agreeable to speak to entry writer. She appears to be fairly calm and cooperative during the interview. She states that she has been doing a bit better with the medications and has been taking Zyprexa and Prozac. She states that she tried to go back to the [place] upon discharge however was not allowed back and claims that she believes that her rights were violated when someone from the hospital told them at the [place] that she had MRSA and couldn't go back. She claims that she is currently awaiting the patient advocate to do his investigation on this. She states that she is doing "fine otherwise". She claims that she still "messes my daughter". Referring to the daughter that . She states that her sleep has not done very well and was agreeable to have her Zyprexa increased. She also states that she is having some anxiety during the day and at nighttime as well. She claims that her appetite is fair. Denying any paranoia today. At this time patient denies any suicidal or homical ideations, intent or plan. Patient denies any auditory, visual hallucinations. Patients admits to using no recreational drugs PAST PSYCHIATRIC HISTORY: Patient claims that she has no significant psychiatric history where she was seen by entry writer for consultation psychiatric evaluation in her previous hospitalization medically. Patient is currently on Zyprexa and Prozac. Patient denies any previous psychiatric hospitalizations. Patient denies any psychiatric outpatient follow-up. Patient denies any history of suicide attempts in the past. Past Medical History: Atrial Fibrillation, Diabetes Mellitus Additional Past Medical History / Comment(s): lupus ALLERGIES: as per EMR. CHEMICAL DEPENDENCY HISTORY: as per HPI. FAMILY PSYCHIATRIC/SUBSTANCE USE HISTORY: denies SOCIAL HISTORY: Patient was born and raised in [place]. She states that she completed up to 11th grade in school. She claims that she is currently unemployed. She is living in a [place] [facility] [place] called [facility]. She has 2 kids. MENTAL STATUS EXAM: General Appearance: Patient appears to be stated age is alert, directable and cooperative. Patient appears to have fair hygiene and grooming wearing hospital gown with fair eye contact. Behavior: Patient is calmly sitting in bed without any agitated behavior. Directable and cooperative Speech: Patient's speech is fluent and nonpressured. Mood/Affect: Patient reports their mood is "anxious", affect is congruent Suicidality/Homicidality: Patient denies having any suicidal or homicidal ideation intent or plan. Perceptions: Patient denies any visual hallucinations and denies any auditory hallucinations Though content/process: There is no evidence of any delusional thought content and thought process is linear and goal-directed. Memory and concentration: AOX3, grossly intact for the purposes of this session. Can spell "WORLD" backwards Judgment and insight: Improving IMPRESSIONS: anxiety disorder NOS history of major depressive disorder with psychotic features PLAN: -At this time will continue following along to see if patient does meet inpatien t psych criteria. -Would recommend the following medication changes/additions: increase Prozac 40 mg daily for mood/anxiety, increase Zyprexa 7.5 mg daily at bedtime for psychosis/sleep. -motion picture set worker to provide patient with outpatient mental health/psychiatry resources for appropriate follow up upon discharge -Communicated plan to patient's nurse -Will continue to follow along tomorrow -Please contact with any questions. 06/07/22 13:29
[2022-06-07] MEDS ORDERED: ACETAMINOPHEN TAB 325 MG TAB PO PRN (13:55)
[2022-06-07] MEDS ORDERED: IBUPROFEN 200 MG TAB PO PRN (13:56)
[2022-06-07] MEDS: diphenhydrAMINE 50 MG/ML 1 ML VIAL IVP PRN (18:33)
[2022-06-07] MEDS: OLANZapine 7.5 MG TAB PO SCH (20:45)
--- NOTE | 2022-06-07 21:49 | P.CONS ---
History of Present Illness - Reason for Consult Consult date: 06/07/22 - History of Present Illness Patient is a 32-year-old -[place] Islander female with a past medical history significant for atrial fibrillation SLE/Dermatomyositis in this patient to have a bilateral upper extremity nonhealing wound she was recently admitted to this hospital from 05/30 to 06/01/2022 with a bone infection and wound culture positive for MRSA patient also have a blood cultures came back positive with gram-positiv e cocci however the patient left AGAINST MEDICAL ADVICE, patient now presenting back to the hospital for evaluation of feeling weak patient has been complaining of worsening wound to bilateral upper extremity and drainage complaining of pain and is coming to be sharp almost 10 out of 10 in severity with no radiation and did have some purulent drainage from her wounds patient on presentation to the hospital was afebrile and no fever have recorded subsequently patient did have a normal white count kidney function has been normal urine hCG was negative patient did have a blood cultures obtained and wound culture from the left arm patient was started on clindamycin infectious disease was consulted for further management of antibiotic therapy Past Medical History Past Medical History: Atrial Fibrillation, Diabetes Mellitus Additional Past Medical History / Comment(s): lupus History of Any Multi-Drug Resistant Organisms: None Reported Year Discovered:: 05/30/2022 MDRO Source:: right arm Past Surgical History: No Surgical Hx Reported Additional Past Surgical History / Comment(s): debridements of wounds Past Anesthesia/Blood Transfusion Reactions: Unable to Obtain Additional Past Anesthesia/Blood Transfusion Reaction / Comm: Pt denies ever having had surgery. Past Psychological History: No Psychological Hx Reported Past Alcohol Use History: None Reported Past Drug Use History: None Reported - Past Family History Father History Unknown: Yes Additional Family Medical History / Comment(s): Pt states she is an orphan. Mother History Unknown: Yes Additional Family Medical History / Comment(s): Pt states she is an orphan. Medications and Allergies Home Medications Medication Instructions Recorded Confirmed Type Alendronate Sodium [Fosamax] 70 mg PO TH 05/30/22 06/06/22 History Apixaban [Eliquis] 5 mg PO BID 05/30/22 06/06/22 History Folic Acid 1 mg PO DAILY 05/30/22 06/06/22 History Gabapentin 300 mg PO TID 05/30/22 06/06/22 History Morphine Sulfate ER [Ms Contin] 15 mg PO Q12H 05/30/22 06/06/22 History Naloxone HCl [Narcan] 4 mg NASAL ONCE PRN 05/30/22 06/06/22 History Omeprazole 20 mg PO DAILY 05/30/22 06/06/22 History Ondansetron [Zofran] 4 mg PO TID PRN 05/30/22 06/06/22 History Sennosides [Senokot] 8.6 mg PO DAILY PRN 05/30/22 06/06/22 History metHOTREXate sodium [Methotrexate] 15 mg PO TH 05/30/22 06/06/22 History polyethylene glycoL 3350 [Miralax] 17 gm PO DAILY PRN 05/30/22 06/06/22 History FLUoxetine HCL [PROzac] 20 mg PO DAILY #30 cap 05/31/22 06/06/22 Rx OLANZapine [ZyPREXA] 5 mg PO HS #30 tab 05/31/22 06/06/22 Rx predniSONE [Deltasone] 40 mg PO DAILY #0 05/31/22 06/06/22 Rx Allergies Allergy/AdvReac Type Severity Reaction Status Date / Time No Known Allergies Allergy Verified 06/06/22 13:58 Physical Exam Vitals: Vital Signs Temp Pulse Pulse Pulse Resp BP BP 06/07/22 03:56 97.5 F L 73 18 100/66 06/07/22 00:26 98.4 F 97 16 109/72 06/06/22 22:05 98.0 F 99 16 102/56 06/06/22 21:20 69 16 132/107 06/06/22 19:38 67 64 16 119/80 06/06/22 16:43 95 18 112/76 06/06/22 13:30 98 F 100 20 126/89 Pulse Ox 06/07/22 03:56 100 06/07/22 00:26 100 06/06/22 22:05 99 06/06/22 21:20 98 06/06/22 19:38 100 06/06/22 16:43 98 06/06/22 13:30 97 Intake and Output 06/06/22 06/07/22 06/07/22 22:59 06:59 14:59 Other: # Voids 2 Weight 65.317 kg Results CBC & Chem 7: 06/07/22 08:42 06/07/22 08:42 Labs: Abnormal Lab Results - Last 24 Hours (Table) 06/06/22 06/06/22 06/06/22 Range/Units 15:33 15:33 15:33 RBC (3.80-5.40) m/uL Hgb 10.5 L (11.4-16.0) gm/dL Hct 33.3 L (34.0-46.0) % RDW 18.4 H (11.5-15.5) % D-Dimer 1.43 H (<0.60) mg/L FEU Sodium 136 L (137-145) mmol/L Carbon Dioxide 21 L (22-30) mmol/L Creatinine 0.51 L (0.52-1.04) mg/dL 06/07/22 06/07/22 Range/Units 08:42 08:42 RBC 3.58 L (3.80-5.40) m/uL Hgb 9.6 L (11.4-16.0) gm/dL Hct 30.6 L (34.0-46.0) % RDW 18.5 H (11.5-15.5) % D-Dimer (<0.60) mg/L FEU Sodium 136 L (137-145) mmol/L Carbon Dioxide (22-30) mmol/L Creatinine (0.52-1.04) mg/dL Microbiology - Last 24 Hours (Table) 06/06/22 15:33 Wound Culture - Preliminary Arm - Left Assessment and Plan Plan: 1patient with bilateral upper extremity wounds related to underlying rheumatological disorder and concern for possible secondary infection as recent culture positive for MRSA with nonhealing because of noncompliance of the patient as she left AGAINST MEDICAL ADVICE last week. 2positive blood culture with staph epi possible skin contaminant however the patient do have a port and the blood cultures need to be repeated to make sure no evidence of any port infection. 3blood cultures from the port and peripherally and those will be followed local culture has been obtained and those will be followed. 4discontinue clindamycin. 5vancomycin pharmacy to dose target trough of 15 while watching kidney function and vancomycin trough closely. 6local wound care with Medih[facility] followed by moist dressing change daily. We will follow on clinical condition and cultures to further adjust medication if needed Thank you for this consultation will follow this patient along with you Time with Patient: Greater than 30
[2022-06-08] MEDS: VANCOMYCIN 1,250 MG in SODIUM CHLORIDE 0.9% 250 ML IVPB SCH ×3 (04:14→20:53)
[2022-06-08] MEDS: MORPHINE SULFATE IR 15 MG TABLET PO PRN ×2 (06:10→15:05)
[2022-06-08] MEDS: PANTOPRAZOLE 40 MG TABLET PO SCH (06:10)
[2022-06-08 08:43] LABS: Anisocytosis Slight; Basophils % (A) 1 %; Eosinophils # (A) 0.1 k/uL (0-0.7); Eosinophils % (A) 4 %; HGB 9.7 gm/dL (11.4-16.0); Hypochromasia Moderate; Lymphocytes % (A) 30 %; MCH 26.9 pg (25.0-35.0); MCHC 31.2 g/dL (31.0-37.0); MCV 86.1 fL (80.0-100.0); Mean Platelet Volume 7.6; Monocytes # (A) 0.4 k/uL (0-1.0); Monocytes % (A) 11 %; Neutrophils # (A) 1.9 k/uL (1.3-7.7); Neutrophils % (A) 53 %; Platelet Count 260 k/uL (150-450); RDW 18.4 % (11.5-15.5); WBC 3.5 k/uL (3.8-10.6)
[2022-06-08] MEDS: APIXABAN 5 MG TAB PO SCH ×2 (08:52→20:53)
[2022-06-08] MEDS: diphenhydrAMINE 50 MG/ML 1 ML VIAL IVP PRN (08:52)
[2022-06-08] MEDS: FLUoxetine HCL 20 MG CAP PO SCH (08:52)
[2022-06-08] MEDS: GABAPENTIN 300 MG CAP PO SCH ×2 (08:52→20:53)
[2022-06-08] MEDS: MORPHINE SULFATE ER 15 MG TABLET PO SCH ×2 (08:53→20:53)
[2022-06-08] MEDS: FOLIC ACID 1 MG TAB PO SCH (08:53)
[2022-06-08 08:55] LABS: African American GFR (CKD) >90 (>60 ml/min/1.73 sqM); Anion Gap 6 mmol/L; Blood Urea Nitrogen 12 mg/dL (7-17); Calcium 8.5 mg/dL (8.4-10.2); Carbon Dioxide 24 mmol/L (22-30); Chloride 106 mmol/L (98-107); Glucose 75 mg/dL (74-99); Magnesium 1.9 mg/dL (1.6-2.3); Non-African American GFR(CKD) >90 (>60 ml/min/1.73 sqM); Potassium 4.2 mmol/L (3.5-5.1); Sodium 136 mmol/L (137-145)
[2022-06-08] MEDS ORDERED: NICOTINE 21MG/24HR PATCH TRANSDERM SCH (09:00)
[2022-06-08] MEDS: NICOTINE 21MG/24HR PATCH TRANSDERM SCH (09:01)
[2022-06-08] MEDS: HYDROmorphone 1 MG/ML 1 ML SYRINGE IVP PRN ×5 (12:13→21:45)
--- NOTE | 2022-06-08 12:49 | P.PN ---
Subjective Progress Note Date: 06/08/22 HISTORY OF PRESENT ILLNESS: This is a 32-year-old female with a past medical history significant for paroxysmal atrial fibrillation and PE. Patient does not follow with a high man. We have been asked to see the patient in consultation for chest pain. Patient examined at the bedside. Patient states she has been having chest pain for the past 2 days. She states the pain is in the middle of her chest and also in between her shoulder blades. She denies any other radiation of the pain. She denies any shortness of breath. She states the pain has been intermittent. She states the pain gets better when she relaxes and does not talk. * EKG reveals sinus mechanism with early repolarization noted. No signs of acute ischemia * Chest xray negative for acute process * Laboratory data: WBC 4.2. Hemoglobin 9.6. Platelet count 293. Sodium 136. Potassium 3.7. BUN 9. Creatinine 0.58. Troponin negative 2. * Current home cardiac medications include Eliquis 5 mg twice a day 06/08/2022 Patient examined this morning at the bedside. Patient denies chest pain or pressure. Denies SOB. Echocardiogram completed revealing ejection fraction 55- 60% with no wall motion abnormalities noted. PHYSICAL EXAM: VITAL SIGNS: Reviewed. GENERAL: Well-developed in no acute distress. HEENT: Head is normocephalic. Pupils are equal, round. Sclerae anicteric. Mucous membranes of the mouth are moist. Neck supple. No JVD or thyromegaly LUNGS: Respirations even and unlabored. Lungs essentially clear to auscultation bilaterally. HEART: Regular rate and rhythm. S1 and S2 heard. ABDOMEN: Soft. Nondistended. Nontender. EXTREMITIES: Normal range of motion. No clubbing or cyanosis. Peripheral pulses intact. No lower extremity edema NEUROLOGIC: Awake and alert. Oriented x 3. ASSESSMENT: Chest pain, atypical, troponin negative 2 Paroxysmal atrial fibrillation History of PE, on anticoagulation with Eliquis Left upper extremity wounds, on antibiotics PLAN: Patient is currently stable from a cardiac point with no further inpatient recommendations We will sign off. Please reconsult if needed. Nurse practitioner note has been reviewed by physician. Signing provider agrees with the documented findings, assessment, and plan of care. Objective - Vital Signs Vital signs: Vital Signs Temp 98.4 F 06/08/22 12:24 Pulse 86 06/08/22 12:24 Resp 16 06/08/22 12:24 BP 125/75 06/08/22 12:24 Pulse Ox 100 06/08/22 12:24 FiO2 Intake & Output 06/07/22 06/08/22 06/08/22 18:59 06:59 18:59 Intake Total 1200 70 Balance 1200 70 Intake: IV 20 Invasive Line 1 10 Invasive Line 2 10 Intake, IV Titration 250 Amount Vancomycin 1,250 mg In 250 Sodium Chloride 0.9% 250 ml @ 125 mls/hr IVPB Q8H [facility] Rx#:[id number] Oral 950 50 Other: Voiding Method Toilet Toilet # Voids 1 3 - Labs CBC & Chem 7: 06/08/22 08:21 06/08/22 08:21 Labs: Abnormal Lab Results - Last 24 Hours (Table) 06/08/22 06/08/22 Range/Units 08:21 08:21 WBC 3.5 L (3.8-10.6) k/uL RBC 3.60 L (3.80-5.40) m/uL Hgb 9.7 L (11.4-16.0) gm/dL Hct 31.0 L (34.0-46.0) % RDW 18.4 H (11.5-15.5) % Sodium 136 L (137-145) mmol/L Microbiology - Last 24 Hours (Table) 06/06/22 15:33 Gram Stain - Preliminary Arm - Left Wound Culture - Preliminary Gram Neg Bacilli Presumptive MRSA 06/06/22 15:16 Blood Culture - Preliminary Blood No Growth after 24 hours 06/06/22 15:33 Blood Culture - Preliminary Blood No Growth after 24 hours
--- NOTE | 2022-06-08 13:41 | P.PAINCN ---
History of Present Illness - Reason for Consult Consult date: 06/08/22 - History of Present Illness This is 52 years old female with history of systemic lupus erythematous, and she is admitted to [facility] contrary to chest pain, and infection, patient had multiple wound localized in the upper and lower extremity and the decubitus area, the blood culture was positive for MRSA and positive for gram-positive cocci, patient had pain localized around the around the wound area and she reported that every time she had dressing change she had her pain is exacerbated, he is currently on Neurontin 300 mg 3 times a day which she feels that she has no benefit from it, and also she had MS Contin 15 mg twice a day and Tylenol 325 every 6 hours, dressing changes and occasional exacerbation when she tried to move around or ambulate, patient had a history of paroxysmal A. fib and she is currently on blood thinner Eliquis Past Medical History Past Medical History: Atrial Fibrillation, Diabetes Mellitus Additional Past Medical History / Comment(s): lupus History of Any Multi-Drug Resistant Organisms: None Reported Year Discovered:: 05/30/2022 MDRO Source:: right arm Past Surgical History: No Surgical Hx Reported Additional Past Surgical History / Comment(s): debridements of wounds Past Anesthesia/Blood Transfusion Reactions: Unable to Obtain Additional Past Anesthesia/Blood Transfusion Reaction / Comm: Pt denies ever having had surgery. Past Psychological History: No Psychological Hx Reported Past Alcohol Use History: None Reported Past Drug Use History: None Reported - Past Family History Father History Unknown: Yes Additional Family Medical History / Comment(s): Pt states she is an orphan. Mother History Unknown: Yes Additional Family Medical History / Comment(s): Pt states she is an orphan. Medications and Allergies Home Medications Medication Instructions Recorded Confirmed Type Alendronate Sodium [Fosamax] 70 mg PO TH 05/30/22 06/06/22 History Apixaban [Eliquis] 5 mg PO BID 05/30/22 06/06/22 History Folic Acid 1 mg PO DAILY 05/30/22 06/06/22 History Gabapentin 300 mg PO TID 05/30/22 06/06/22 History Morphine Sulfate ER [Ms Contin] 15 mg PO Q12H 05/30/22 06/06/22 History Naloxone HCl [Narcan] 4 mg NASAL ONCE PRN 05/30/22 06/06/22 History Omeprazole 20 mg PO DAILY 05/30/22 06/06/22 History Ondansetron [Zofran] 4 mg PO TID PRN 05/30/22 06/06/22 History Sennosides [Senokot] 8.6 mg PO DAILY PRN 05/30/22 06/06/22 History metHOTREXate sodium [Methotrexate] 15 mg PO TH 05/30/22 06/06/22 History polyethylene glycoL 3350 [Miralax] 17 gm PO DAILY PRN 05/30/22 06/06/22 History FLUoxetine HCL [PROzac] 20 mg PO DAILY #30 cap 05/31/22 06/06/22 Rx OLANZapine [ZyPREXA] 5 mg PO HS #30 tab 05/31/22 06/06/22 Rx predniSONE [Deltasone] 40 mg PO DAILY #0 05/31/22 06/06/22 Rx Allergies Allergy/AdvReac Type Severity Reaction Status Date / Time No Known Allergies Allergy Verified 06/06/22 13:58 Physical Exam Vitals: Vital Signs Temp Pulse Resp BP Pulse Ox 06/08/22 12:24 98.4 F 86 16 125/75 100 06/08/22 09:03 98.2 F 80 16 116/75 100 06/08/22 04:00 98.2 F 89 16 108/78 100 06/07/22 23:10 98.6 F 79 16 125/72 100 06/07/22 20:00 98.4 F 91 12 108/69 99 06/07/22 16:00 98 F 89 18 104/64 100 Intake and Output 06/07/22 06/08/22 06/08/22 22:59 06:59 14:59 Intake Total 400 800 70 Balance 400 800 70 Intake: IV 20 Invasive Line 1 10 Invasive Line 2 10 Intake, IV Titration 250 Amount Vancomycin 1,250 mg In 250 Sodium Chloride 0.9% 250 ml @ 125 mls/hr IVPB Q8H [facility] Rx#:[id number] Oral 400 550 50 Other: Voiding Method Toilet Toilet Toilet # Voids 1 3 Physical Examinations : -Constitutiona : Cooperative , not in acute distress . -HEENT : nech : supple , no Lymphadenopathy , normal thyroid size . : eyes : no ptosis , no icterus, no photophobia . - neurologic : Cranial nerve II to XII intact , no focal neurological deffecit . -psychatric : alert , oriented X 3 , appropriate affect , intact judgment and insight . -Lymphatic : no Lymphadenopathy . - musculoskeltal : Patient had open wound that is covered with gauze in the left upper extremity ,and in the decubitus. Results CBC & Chem 7: 06/08/22 08:21 06/08/22 08:21 Labs: Abnormal Lab Results - Last 24 Hours (Table) 06/08/22 06/08/22 Range/Units 08:21 08:21 WBC 3.5 L (3.8-10.6) k/uL RBC 3.60 L (3.80-5.40) m/uL Hgb 9.7 L (11.4-16.0) gm/dL Hct 31.0 L (34.0-46.0) % RDW 18.4 H (11.5-15.5) % Sodium 136 L (137-145) mmol/L Microbiology - Last 24 Hours (Table) 06/06/22 15:33 Gram Stain - Preliminary Arm - Left Wound Culture - Preliminary Gram Neg Bacilli Presumptive MRSA 06/06/22 15:16 Blood Culture - Preliminary Blood No Growth after 24 hours 06/06/22 15:33 Blood Culture - Preliminary Blood No Growth after 24 hours Assessment and Plan Plan: Assessment and plan=1-acute on chronic pain Recommend to continue MS Contin 15 mg every 12 hours Recommend to add Dilaudid 1 mg IV when necessary for breakthrough pain. Patient being on Neurontin 300 mg 3 times a day without any benefit recommend to taper the Neurontin dose gradually 2-SLE . 3-multiple wound in the left upper extremity and the buttock area. 4- anxiety and major depression with psychotic features. 5-paroxysmal A. fib Time with Patient: Less than 30 PQRS Measure Charge Sheet - Pain Location Left Arm Non-Pharmacological Interventions: Darkened Room, Heat, Ice, Position/Reposition, Relaxation Technique Pharmacological Interventions: PRN Medication, Scheduled Medication PQRS Narrative: Do You Want the Pneumonia No Vaccine AT THIS TIME? Blood Pressure [Right Arm] 125/75 Blood Pressure 132/107 Pain Intensity [Left Arm] 10 Pain Intensity 9 Pain Scale Used Numeric (1 - 10) Scale Used Numeric (1 - 10) Home Medications: Ambulatory Orders Alendronate Sodium [Fosamax] 70 mg PO TH 05/30/22 Apixaban [Eliquis] 5 mg PO BID 05/30/22 Folic Acid 1 mg PO DAILY 05/30/22 Gabapentin 300 mg PO TID 05/30/22 Morphine Sulfate ER [Ms Contin] 15 mg PO Q12H 05/30/22 Naloxone HCl [Narcan] 4 mg NASAL ONCE PRN 05/30/22 Omeprazole 20 mg PO DAILY 05/30/22 Ondansetron [Zofran] 4 mg PO TID PRN 05/30/22 Sennosides [Senokot] 8.6 mg PO DAILY PRN 05/30/22 metHOTREXate sodium [Methotrexate] 15 mg PO TH 05/30/22 polyethylene glycoL 3350 [Miralax] 17 gm PO DAILY PRN 05/30/22 FLUoxetine HCL [PROzac] 20 mg PO DAILY #30 cap 05/31/22 OLANZapine [ZyPREXA] 5 mg PO HS #30 tab 05/31/22 predniSONE [Deltasone] 40 mg PO DAILY #0 05/31/22
--- NOTE | 2022-06-08 14:05 | P.PN ---
Progress Note - Text Progress Note Date: 06/08/22 Interval History: Patient was seen today for psychiatric follow-up. Patient claims that her mood has been gradually improving since being in the hospital. He states that she is still dealing with anxiety at times. She claims that she used to be on Xanax and was requesting to be placed back on it. We spoke about different alternatives and the possibility of tolerance and abuse from benzodiazepines and patient was agreeable to try Vistaril. She states that she was able to build a better last night with increased dose of Zyprexa was agreeable to try melatonin as well tonight. She states that her appetite is fair and improving. She appears to be more future oriented and states that she feels "calmer". She is not endorsing any paranoia or delusions today. At this time patient denies any suicidal or homical ideations, intent or plan. Patient denies any auditory, visual hallucinations. Patient denies any side effects from the medications and has been compliant with meds. Mental Status Exam: general Appearance: Patient appears to be stated age is alert, directable and cooperative. Patient appears to have fair hygiene and grooming wearing hospital gown with fair eye contact. Behavior: Patient is calmly sitting in bed without any agitated behavior. Directable and cooperative Speech: Patient's speech is fluent and nonpressured. Mood/Affect: Patient reports their mood is "anxious", affect is congruent Suicidality/Homicidality: Patient denies having any suicidal or homicidal ideation intent or plan. Perceptions: Patient denies any visual hallucinations and denies any auditory hallucinations Though content/process: There is no evidence of any delusional thought content and thought process is linear and goal-directed. More future oriented Memory and concentration: AOX3, grossly intact for the purposes of this session Judgment and insight: Improving IMPRESSIONS: anxiety disorder NOS history of major depressive disorder with psychotic features PLAN: -At this time patient does not meet criteria for inpatient psychiatric hospitalization. -Would recommend the following medication changes/additions: Prozac 40 mg daily for mood/anxiety, Zyprexa 7.5 mg daily at bedtime for psychosis/sleep. added melatonin 6 mg qhs for insomnia. added vistaril prn for anxiety. -pitch worker to provide patient with outpatient mental health/psychiatry resources for appropriate follow up upon discharge -Communicated plan to patient's nurse -at this time psychiatry will sign off. -Please contact with any questions.
--- NOTE | 2022-06-08 15:48 | P.PN ---
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 On today's evaluation that is 06/08/2022, the patient denies having any fever or any chills the patient is still complaining of pain to bilateral upper ex tremity wound area, the patient denies having any chest pain shortness of cough no abdominal pain or diarrhea Objective - Vital Signs Vital signs: Vital Signs Temp 98.4 F 06/08/22 12:24 Pulse 86 06/08/22 12:24 Resp 16 06/08/22 12:24 BP 125/75 06/08/22 12:24 Pulse Ox 100 06/08/22 12:24 FiO2 Intake & Output 06/07/22 06/08/22 06/08/22 18:59 06:59 18:59 Intake Total 1200 70 Balance 1200 70 Intake: IV 20 Invasive Line 1 10 Invasive Line 2 10 Intake, IV Titration 250 Amount Vancomycin 1,250 mg In 250 Sodium Chloride 0.9% 250 ml @ 125 mls/hr IVPB Q8H [facility] Rx#:[id number] Oral 950 50 Other: Voiding Method Toilet Toilet # Voids 1 3 - Exam GENERAL DESCRIPTION: Middle-aged female lying in bed in no distress RESPIRATORY SYSTEM: Unlabored breathing , decreased breath sounds at bases HEART: S1 S2 regular rate and rhythm , ABDOMEN: Soft , no tenderness EXTREMITIES: Bilateral upper arm was are currently dressed no drainage on the dressing - Labs CBC & Chem 7: 06/08/22 08:21 06/08/22 08:21 Labs: Abnormal Lab Results - Last 24 Hours (Table) 06/08/22 06/08/22 Range/Units 08:21 08:21 WBC 3.5 L (3.8-10.6) k/uL RBC 3.60 L (3.80-5.40) m/uL Hgb 9.7 L (11.4-16.0) gm/dL Hct 31.0 L (34.0-46.0) % RDW 18.4 H (11.5-15.5) % Sodium 136 L (137-145) mmol/L Microbiology - Last 24 Hours (Table) 06/06/22 15:33 Gram Stain - Preliminary Arm - Left Wound Culture - Preliminary Gram Neg Bacilli Presumptive MRSA 06/06/22 15:16 Blood Culture - Preliminary Blood No Growth after 24 hours 06/06/22 15:33 Blood Culture - Preliminary Blood No Growth after 24 hours Assessment and Plan (1) Abscess of multiple sites Current Visit: Yes Status: Acute Code(s): L02.91 - CUTANEOUS ABSCESS, UNSPECIFIED SNOMED Code(s): 801716127 Plan: 1patient with bilateral upper extremity wounds related to underlying rheumatological disorder and concern for possible secondary infection as recent culture positive for MRSA with nonhealing because of noncompliance of the patient as she left AGAINST MEDICAL ADVICE last week. 2positive blood culture with staph epi possible skin contaminant however the patient do have a port and the blood cultures need to be repeated to make sure no evidence of any port infection. Repeat blood cultures are negative so far 3local cultures currently growing presumptive MRSA and gram-negative 4patient to continue with vancomycin pharmacy to dose target trough of 15 while watching kidney function and vancomycin trough closely we will add cefepime to cover for the gram-negative. 5local wound care with Medihoney followed by moist dressing change daily. Time with Patient: Less than 30
[2022-06-08] MEDS: CEFEPIME 2 GM in SODIUM CHLORIDE 0.9% 100 ML IVPB SCH (16:59)
--- NOTE | 2022-06-08 17:38 | P.PN ---
Subjective This is a pleasant 52 years old -Luxembourger female with past medical history of atrial fibrillation on Eliquis, systemic lupus erythematosus versus dermatomyositis and she is currently on a prednisone and methotrexate, chronic pain syndrome on MS Contin 15 mg twice daily, gabapentin, depression on Prozac and Zyprexa Patient was recently in this facility 05/30-06/01 when she left AMA for family emergency as she confirms today She has positive blood culture from 05/30 for MRSA and another possible culture from 05/30 for staph epidermidis and coagulase negative the staph Patient was sitting, intubated looks comfortable not in distress. Patient states she came to the hospital because she has a lot of chest pain, a lot of arm pain, pain between shoulder blades, and her left arm and legs and all over. She is also complaining of from diarrhea about 4 times per day with no blood, dark Green or brown in color, it has been going on for the last 2 days. No abdominal pain or nausea vomiting. She denies urinary symptoms, no headache or dizziness or weakness or numbness. She smokes SOMETIMES hookah and she was counseled to quit and she agrees and she agrees to the nicotine patch. She denies alcohol or illicit drugs. She states she has history of breast spelled E, she was diagnosed by a physician and [facility] in 2010 when she had menarche rash, generalized weakness and multiple skin lesions and opening since then. Currently she has alt of scar tissue in her arms, shoulders, proximal thighs. She has 2 open wounds about half inch in diameter in both left and right upper arm with no surrounding cellulitis but there is some yellow purulent discharge but scant. Also the result of scar tissue on the right leg and no open wounds (very tiny pinpoint wound on the right leg, it did not feel to be of significance for patient's symptomatology) Patient states that she supposed to be on methotrexate, folic acid, prednisone, also she supposed to be an Eliquis for her A. fib. 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 She could not remember the name of her PCP but states that he is in [facility]. She feels depressed but she denies homicidal or suicidal ideation, no hallucination Vitals looks stable and patient is afebrile. Unremarkable CBC, INR, BMP and Liver Enzymes. Troponin Is Negative Less Than 0.012. D-Dimer Elevated 1.4. CTA of the chest is negative for PE, diffuse scattered subcutaneous calcification EKG showing normal sinus rhythm at [address]-T changes On admission patient was started on clindamycin and received Dilaudid IV 1 mg 1 She did see pain management in consultation and recommendations are for discontinuation of pain medications with exception of Morphine 15 mg extended release twice a day and to use Morphine IR 15 mg twice a day as needed for breakthrough pain 06/08/2022 Patient awake alert, looks calm and comfortable lying in bed, no distress. Patient still complains from pain all over her body which looks chronic, they're maybe some components of pain is due to infection. Patient is already on home dose of MS Contin 50 mg twice a day, also MSIR 15 mg twice a day when necessary is added. Patient team recommendation last time. Patient was still complaining from pain, Tylenol and Motrin ordered as needed, patient stated did not help and was focused on getting Dilaudid, extensive discussion with the patient about the benefits risks of narcotics including but not limited to cardiorespiratory arrest and/or and she verbalized understanding and acceptance. Then consult ordered and pending. She is currently on cefepime and vancomycin and wound culture is growing MRSA and gram-negative bacilli. She still reports diarrhea about 3 times per day, most likely reactive to her systemic infection, C. diff is ordered and pending. Continue with IntraSite medication. Patient told me she has Eliquis at home She tolerated diet well Objective - Vital Signs Vital signs: Vital Signs Temp 98.2 F 06/08/22 09:03 Pulse 80 06/08/22 09:03 Resp 16 06/08/22 09:03 BP 116/75 06/08/22 09:03 Pulse Ox 100 06/08/22 09:03 FiO2 Intake & Output 06/07/22 06/08/22 06/08/22 18:59 06:59 18:59 Intake Total 1200 60 Balance 1200 60 Intake: IV 10 Invasive Line 1 10 Intake, IV Titration 250 Amount Vancomycin 1,250 mg In 250 Sodium Chloride 0.9% 250 ml @ 125 mls/hr IVPB Q8H [facility] Rx#:[id number] Oral 950 50 Other: Voiding Method Toilet Toilet # Voids 1 3 - Exam GENERAL: The patient is alert and oriented x3, not in any acute distress. Well developed, well nourished. HEENT: Pupils are round and equally reacting to light. EOMI. No scleral icterus. No conjunctival pallor. Normocephalic, atraumatic. No pharyngeal erythema. No thyromegaly. CARDIOVASCULAR: S1 and S2 present. No murmurs, rubs, or gallops. PULMONARY: Chest is clear to auscultation, no wheezing or crackles. ABDOMEN: Soft, nontender, nondistended, normoactive bowel sounds. No palpable organomegaly. Multiple calcified spots in her abdominal wall(patient states this is a chronic) MUSCULOSKELETAL: No joint swelling or deformity. EXTREMITIES: No cyanosis, clubbing, or pedal edema. NEUROLOGICAL: Gross neurological examination did not reveal any focal deficits. -SKIN: No rashes. no petechiae. Multiple scar tissue in both proximal upper and lower extremities. Bilateral open wounds with some purulent discharge on both arms about half inch in diameter, no surrounding cellulitis. No significant wounds in the lower extremities, only scar tissue - Labs CBC & Chem 7: 06/08/22 08:21 06/08/22 08:21 Labs: Abnormal Lab Results - Last 24 Hours (Table) 06/07/22 06/08/22 06/08/22 Range/Units 08:42 08:21 08:21 WBC 3.5 L (3.8-10.6) k/uL RBC 3.60 L (3.80-5.40) m/uL Hgb 9.7 L (11.4-16.0) gm/dL Hct 31.0 L (34.0-46.0) % RDW 18.4 H (11.5-15.5) % Sodium 136 L 136 L (137-145) mmol/L Microbiology - Last 24 Hours (Table) 06/06/22 15:33 Gram Stain - Preliminary Arm - Left Wound Culture - Preliminary Gram Neg Bacilli Presumptive MRSA 06/06/22 15:16 Blood Culture - Preliminary Blood No Growth after 24 hours 06/06/22 15:33 Blood Culture - Preliminary Blood No Growth after 24 hours Assessment and Plan Assessment: -Chest pain, cardiac causes were ruled out and cardiology signed off. -Positive blood culture with staph suspicious for bacteremia. Repeat blood culture negative so far -Bilateral 1 ulcer on each of both upper extremities, each about half inch in diameter with purulent discharge but no surrounding cellulitis and very small one on the right lower extremity, secondary to MRSA and gram-negative bacilli -Generalized pain and body aches, which could be exacerbated by her infection -Paroxysmal atrial fibrillation on Eliquis -Generalized pain -History of systemic lupus erythematosus -Depression -Noncompliance, with recent leaving AMA from this facility -Chronic pain syndromes that follow-up with clinic clinic Plan: This is a pleasant 52 years old female who presents with positive blood culture and multiple extremity ulceration, chest pain Continue with IV vancomycin and cefepime Resume Eliquis Follow-up her repeat Blood culture Infectious disease consult Psychiatric consult cardiology team consult Check for C. 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 gracia in one week after discharge risks and benefits and importance of compliance to medication and station are explained for the patient and she verbalized understanding and acceptance Labs and medication were reviewed.. Continue same treatment. Continue with symptomatic treatment. Resume home medication. Monitor lytes and vitals. DVT and GI prophylaxis. Further recommendations as per clinical course of the patient DVT prophylaxis: Eliquis GI Prophylaxis: Ppi Prognosis is guarded
[2022-06-08] MEDS: MELATONIN 3 MG TABLET PO SCH (20:53)
[2022-06-08] MEDS: OLANZapine 7.5 MG TAB PO SCH (20:54)
[2022-06-08] MEDS: hydrOXYzine pamoate 25 MG CAP PO PRN (21:07)
[2022-06-09] MEDS: CEFEPIME 2 GM in SODIUM CHLORIDE 0.9% 100 ML IVPB SCH ×3 (00:03→18:34)
[2022-06-09] MEDS: HYDROmorphone 1 MG/ML 1 ML SYRINGE IVP PRN ×11 (00:04→23:44)
[2022-06-09] MEDS: VANCOMYCIN 1,250 MG in SODIUM CHLORIDE 0.9% 250 ML IVPB SCH ×3 (04:26→21:35)
[2022-06-09] MEDS: PANTOPRAZOLE 40 MG TABLET PO SCH (06:25)
[2022-06-09] MEDS: FLUoxetine HCL 20 MG CAP PO SCH (08:30)
[2022-06-09] MEDS: FOLIC ACID 1 MG TAB PO SCH (08:31)
[2022-06-09] MEDS: MORPHINE SULFATE ER 15 MG TABLET PO SCH ×2 (08:31→20:41)
[2022-06-09] MEDS: GABAPENTIN 300 MG CAP PO SCH ×2 (08:31→20:41)
[2022-06-09] MEDS: APIXABAN 5 MG TAB PO SCH ×2 (08:31→20:41)
[2022-06-09] MEDS: NICOTINE 21MG/24HR PATCH TRANSDERM SCH (08:38)
[2022-06-09] MEDS ORDERED: VANCOMYCIN TROUGH DUE 1 EACH MISC MISCELLANE ONE (10:00)
[2022-06-09 11:02] LABS: African American GFR (CKD) >90 (>60 ml/min/1.73 sqM); Anion Gap 9 mmol/L; Blood Urea Nitrogen 9 mg/dL (7-17); Calcium 8.2 mg/dL (8.4-10.2); Carbon Dioxide 22 mmol/L (22-30); Chloride 105 mmol/L (98-107); Glucose 88 mg/dL (74-99); Non-African American GFR(CKD) >90 (>60 ml/min/1.73 sqM); Potassium 3.7 mmol/L (3.5-5.1); Sodium 136 mmol/L (137-145)
[2022-06-09 11:17] LABS: Anisocytosis Slight; Basophils % (A) 0 %; Eosinophils # (A) 0.2 k/uL (0-0.7); Eosinophils % (A) 3 %; HCT 30.9 % (34.0-46.0); HGB 9.6 gm/dL (11.4-16.0); Hypochromasia Moderate; Lymphocytes # (A) 1.1 k/uL (1.0-4.8); Lymphocytes % (A) 20 %; MCH 27.3 pg (25.0-35.0); MCHC 31.2 g/dL (31.0-37.0); MCV 87.6 fL (80.0-100.0); Mean Platelet Volume 7.6; Monocytes # (A) 0.5 k/uL (0-1.0); Monocytes % (A) 9 %; Neutrophils # (A) 3.5 k/uL (1.3-7.7); Neutrophils % (A) 63 %; Platelet Count 283 k/uL (150-450); RBC 3.53 m/uL (3.80-5.40); RDW 18.7 % (11.5-15.5); WBC 5.6 k/uL (3.8-10.6)
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
[2022-06-09] MEDS: MELATONIN 3 MG TABLET PO SCH (20:41)
[2022-06-09] MEDS: hydrOXYzine pamoate 25 MG CAP PO PRN (20:42)
[2022-06-09] MEDS: OLANZapine 7.5 MG TAB PO SCH (20:42)
[2022-06-10] MEDS: HYDROmorphone 1 MG/ML 1 ML SYRINGE IVP PRN ×10 (01:47→22:32)
[2022-06-10] MEDS: CEFEPIME 2 GM in SODIUM CHLORIDE 0.9% 100 ML IVPB SCH ×3 (01:47→16:22)
[2022-06-10] MEDS: PANTOPRAZOLE 40 MG TABLET PO SCH (05:47)
[2022-06-10] MEDS: VANCOMYCIN 1,250 MG in SODIUM CHLORIDE 0.9% 250 ML IVPB SCH ×3 (05:47→21:34)
[2022-06-10] MEDS: GABAPENTIN 300 MG CAP PO SCH ×2 (08:12→20:33)
[2022-06-10] MEDS: APIXABAN 5 MG TAB PO SCH ×2 (08:13→20:33)
[2022-06-10] MEDS: MORPHINE SULFATE ER 15 MG TABLET PO SCH ×2 (08:13→20:32)
[2022-06-10] MEDS: FOLIC ACID 1 MG TAB PO SCH (08:13)
[2022-06-10] MEDS: NICOTINE 21MG/24HR PATCH TRANSDERM SCH (08:13)
[2022-06-10] MEDS: FLUoxetine HCL 20 MG CAP PO SCH (08:14)
[2022-06-10] MEDS: hydrOXYzine pamoate 25 MG CAP PO PRN (08:32)
--- NOTE | 2022-06-10 09:49 | P.PN ---
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 On today's evaluation that is 06/09/2022, the patient remains to be afebrile, the patient denies any worsening pain to bilateral upper extremity wound area, the patient denies having any chest pain shortness of cough no abdominal pain or diarrhea Objective - Vital Signs Vital signs: Vital Signs Temp 98.6 F 06/09/22 08:00 Pulse 80 06/09/22 12:00 Resp 16 06/09/22 12:00 BP 105/64 06/09/22 12:00 Pulse Ox 100 06/09/22 12:00 FiO2 Intake & Output 06/08/22 06/09/22 06/09/22 18:59 06:59 18:59 Intake Total 365 600 810 Output Total 3 Balance 365 600 807 Intake: IV 25 Invasive Line 1 10 Invasive Line 2 15 Oral 340 600 810 Output: Urine 2 Stool 1 Other: Voiding Method Toilet Toilet Toilet # Voids 2 2 # Bowel Movements 1 - Exam GENERAL DESCRIPTION: Middle-aged female lying in bed in no distress RESPIRATORY SYSTEM: Unlabored breathing , decreased breath sounds at bases HEART: S1 S2 regular rate and rhythm , ABDOMEN: Soft , no tenderness EXTREMITIES: Bilateral upper arm was are currently dressed no drainage on the dressing - Labs CBC & Chem 7: 06/09/22 10:32 06/09/22 10:32 Labs: Abnormal Lab Results - Last 24 Hours (Table) 06/09/22 06/09/22 Range/Units 10:32 10:32 RBC 3.53 L (3.80-5.40) m/uL Hgb 9.6 L (11.4-16.0) gm/dL Hct 30.9 L (34.0-46.0) % RDW 18.7 H (11.5-15.5) % Sodium 136 L (137-145) mmol/L Calcium 8.2 L (8.4-10.2) mg/dL Microbiology - Last 24 Hours (Table) 06/06/22 15:33 Gram Stain - Final Arm - Left Wound Culture - Final Proteus mirabilis Methicillin resist S. aureus 06/06/22 15:33 Blood Culture - Preliminary Blood No Growth after 48 hours 06/06/22 15:16 Blood Culture - Preliminary Blood No Growth after 48 hours Assessment and Plan (1) Abscess of multiple sites Current Visit: Yes Status: Acute Code(s): L02.91 - CUTANEOUS ABSCESS, UNSPECIFIED SNOMED Code(s): 428225123 Plan: 1patient with bilateral upper extremity wounds related to underlying rheumatological disorder and concern for possible secondary infection as recent culture positive for MRSA with nonhealing because of noncompliance of the patient as she left AGAINST MEDICAL ADVICE last week. 2positive blood culture with staph epi possible skin contaminant however the patient do have a port and the blood cultures done this admission has been negative so far 3local cultures currently growing presumptive MRSA and gram-negative with ID sensitivities pending 4patient to continue with vancomycin pharmacy and cefepime while waiting for the cultures to finalize 5local wound care with Medihoney followed by moist dressing change daily. Time with Patient: Less than 30
[2022-06-10 09:53] LABS: African American GFR (CKD) >90 (>60 ml/min/1.73 sqM); Anion Gap 7 mmol/L; Blood Urea Nitrogen 10 mg/dL (7-17); Calcium 8.1 mg/dL (8.4-10.2); Carbon Dioxide 23 mmol/L (22-30); Chloride 104 mmol/L (98-107); Glucose 109 mg/dL (74-99); Non-African American GFR(CKD) >90 (>60 ml/min/1.73 sqM); Potassium 3.6 mmol/L (3.5-5.1); Sodium 134 mmol/L (137-145)
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
[2022-06-10] MEDS: MORPHINE SULFATE IR 15 MG TABLET PO PRN ×2 (12:53→17:11)
[2022-06-10] MEDS ORDERED: IBUPROFEN 400 MG TAB PO PRN (17:20)
[2022-06-10] MEDS: MELATONIN 3 MG TABLET PO SCH (20:33)
[2022-06-10] MEDS: OLANZapine 7.5 MG TAB PO SCH (20:34)
[2022-06-11] MEDS: CEFEPIME 2 GM in SODIUM CHLORIDE 0.9% 100 ML IVPB SCH ×3 (00:41→17:21)
[2022-06-11] MEDS: HYDROmorphone 1 MG/ML 1 ML SYRINGE IVP PRN ×7 (04:16→20:08)
[2022-06-11] MEDS ORDERED: VANCOMYCIN TROUGH DUE 1 EACH MISC MISCELLANE ONE (05:00)
[2022-06-11] MEDS: PANTOPRAZOLE 40 MG TABLET PO SCH (06:14)
[2022-06-11] MEDS: VANCOMYCIN 1,250 MG in SODIUM CHLORIDE 0.9% 250 ML IVPB SCH ×3 (06:15→22:30)
--- NOTE | 2022-06-11 07:14 | P.PN ---
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 On today's evaluation that is 06/10/2022, the patient continues to be afebrile, the patient pain to bilateral upper extremity wound area is somewhat controlled, the patient denies having any chest pain shortness of cough no abdominal pain or diarrhea Objective - Vital Signs Vital signs: Vital Signs Temp 98 F 06/09/22 19:43 Pulse 77 06/10/22 01:14 Resp 18 06/10/22 01:14 BP 115/69 06/10/22 01:14 Pulse Ox 100 06/10/22 01:14 FiO2 Intake & Output 06/09/22 06/10/22 06/10/22 18:59 06:59 18:59 Intake Total 990 500 Output Total 3 2 Balance 987 498 Intake: Oral 990 500 Output: Urine 2 2 Stool 1 Other: Voiding Method Toilet Toilet - Exam GENERAL DESCRIPTION: Middle-aged female lying in bed in no distress RESPIRATORY SYSTEM: Unlabored breathing , decreased breath sounds at bases HEART: S1 S2 regular rate and rhythm , ABDOMEN: Soft , no tenderness EXTREMITIES: Bilateral upper arm was are currently dressed no drainage on the dressing - Labs CBC & Chem 7: 06/09/22 10:32 06/10/22 09:12 Labs: Abnormal Lab Results - Last 24 Hours (Table) 06/09/22 06/09/22 Range/Units 10:32 10:32 RBC 3.53 L (3.80-5.40) m/uL Hgb 9.6 L (11.4-16.0) gm/dL Hct 30.9 L (34.0-46.0) % RDW 18.7 H (11.5-15.5) % Sodium 136 L (137-145) mmol/L Calcium 8.2 L (8.4-10.2) mg/dL Microbiology - Last 24 Hours (Table) 06/06/22 15:33 Blood Culture - Preliminary Blood No Growth after 72 hours 06/06/22 15:16 Blood Culture - Preliminary Blood No Growth after 72 hours Assessment and Plan (1) Abscess of multiple sites Current Visit: Yes Status: Acute Code(s): L02.91 - CUTANEOUS ABSCESS, UNSPECIFIED SNOMED Code(s): 270154121 Plan: 1patient with bilateral upper extremity wounds related to underlying rheumatological disorder and concern for possible secondary infection as recent culture positive for MRSA with nonhealing because of noncompliance of the patient as she left AGAINST MEDICAL ADVICE last week. 2positive blood culture with staph epi possible skin contaminant however the patient do have a port and the blood cultures done this admission has been negative so far 3local cultures currently growing MRSA and Proteus mirabilis 4patient seemed to have shown some clinical improvement with vancomycin pharmacy and cefepime , we will plan to finish therapy with oral Cipro and doxycycline 10 days 5local wound care with Medihoney followed by moist dressing change daily. Time with Patient: Less than 30
[2022-06-11 07:28] LABS: African American GFR (CKD) >90 (>60 ml/min/1.73 sqM); Anion Gap 8 mmol/L; Blood Urea Nitrogen 6 mg/dL (7-17); Carbon Dioxide 22 mmol/L (22-30); Chloride 105 mmol/L (98-107); Glucose 143 mg/dL (74-99); Non-African American GFR(CKD) >90 (>60 ml/min/1.73 sqM); Sodium 135 mmol/L (137-145)
[2022-06-11 07:37] LABS: Potassium 3.7 mmol/L (3.5-5.1)
[2022-06-11] MEDS: NICOTINE 21MG/24HR PATCH TRANSDERM SCH (08:55)
[2022-06-11] MEDS: APIXABAN 5 MG TAB PO SCH ×2 (08:56→20:03)
[2022-06-11] MEDS: FOLIC ACID 1 MG TAB PO SCH (08:56)
[2022-06-11] MEDS: GABAPENTIN 300 MG CAP PO SCH ×2 (08:56→20:03)
[2022-06-11] MEDS: FLUoxetine HCL 20 MG CAP PO SCH (08:56)
[2022-06-11] MEDS: hydrOXYzine pamoate 25 MG CAP PO PRN (08:56)
[2022-06-11] MEDS: MORPHINE SULFATE ER 15 MG TABLET PO SCH ×2 (08:57→20:04)
[2022-06-11] MEDS: diphenhydrAMINE 50 MG/ML 1 ML VIAL IVP PRN ×2 (08:57→14:18)
[2022-06-11] MEDS: MORPHINE SULFATE IR 15 MG TABLET PO PRN (12:00)
--- NOTE | 2022-06-11 15:55 | P.PAINPG ---
Objective - Vital Signs Vital signs: Vital Signs Temp 98.1 F 06/11/22 12:00 Pulse 95 06/11/22 12:00 Resp 16 06/11/22 12:00 BP 117/77 06/11/22 12:00 Pulse Ox 100 06/11/22 12:00 FiO2 Intake & Output 06/10/22 06/11/22 06/11/22 18:59 06:59 18:59 Intake Total 827 240 Balance 827 240 Intake: Intake, IV Titration 350 Amount Cefepime 2 gm In Sodium 100 Chloride 0.9% 100 ml @ 25 mls/hr IVPB Q8HR JEAN CLAUDE Rx# :[id number] Vancomycin 1,250 mg In 250 Sodium Chloride 0.9% 250 ml @ 125 mls/hr IVPB Q8H JEAN CLAUDE Rx#:[id number] Oral 477 240 Other: Voiding Method Toilet Toilet # Voids 1 3 - Labs CBC & Chem 7: 06/09/22 10:32 06/11/22 06:34 Labs: Abnormal Lab Results - Last 24 Hours (Table) 06/11/22 Range/Units 06:34 Sodium 135 L (137-145) mmol/L BUN 6 L (7-17) mg/dL Creatinine 0.45 L (0.52-1.04) mg/dL Glucose 143 H (74-99) mg/dL Calcium 8.0 L (8.4-10.2) mg/dL Microbiology - Last 24 Hours (Table) 06/06/22 15:33 Blood Culture - Preliminary Blood No Growth after 96 hours 06/06/22 15:16 Blood Culture - Preliminary Blood No Growth after 96 hours PQRS Measure Charge Sheet Comment: HISTORY OF PRESENT ILLNESS: 32 yr old inpatient female presents today w severe and chronic cutaneous pain secondary to subcutaneous SLE nodules and wounds for an evaluation. This was a routine follow up, though pt stated that she is to be discharged soon and requested from me: 1. Dilaudid 2mg IVP x 1 and 2. one week of prescriptions until she "finds a PCP." She is sitting reclined in her hospital bed, calm, c ollected and was on the phone upon presentation. She complained of 10/10 pain when asked. In a prior visit, pt stated that Neurontin does not relieve pain, that she 's been taking it for years, and she would like to be off of it. As a result, documentation to taper down Neurontin 300mg TID was recorded. Also on the same date of service, she received 1mg IVP Dilaudid q2h prn. Today, pt stated she wants to stay on Neurontin and doesn't want it to be tapered down. REVIEW OF ORGAN SYSTEMS: CONSTITUTIONAL: No fevers or chills. No recent weight loss. +SLE NEUROLOGICAL: + numbness and tingling along the distal extremities. No seizure disorders or headaches. MUSCULOSKELETAL: + pain PSYCHIATRIC: Denies current depression or suicidal thoughts. Physical Examinations : Constitutional : Cooperative , not in acute distress . +Multiple subcutaneous nodules with scattered incisional scars over BUEs/ BLEs Neurologic : Cranial nerve II to XII intact. No focal neurological deficits. Psychiatric : alert & oriented x 3. Matching mood & appropriate affect. Judgment & insight intact. Musculoskeletal : Cervical Spine Motor strength in the deltoid and biceps: Normal right side. Normal Left side Motor strength biceps and the wrist extensors: Normal right side . Normal left side Motor strength in the triceps muscle: Normal right side. Normal left side Deep tendon reflexes: Normal at the biceps. Normal at Brachioradialis. Normal at triceps Vertebral body tenderness to deep palpation over Cervical facet loading test: positive bilaterally Spurling test: positive bilaterally Neck distraction test: positive b ilaterally Susana sign: positive bilaterally Lumbar spine Motor strength lower extremities ,thigh and legs 5/5 Right side , 5/5 Left side Deep tendon reflexes : Normal Knee Jerk. Normal Ankle Jerk Vertebral body tenderness over Lumbar facet Loading Test: positive Right / positive Left Range of motion of the lumbar spine Flexion 30 degrees, extension 10 degrees Straight Leg Raise test: Left/ Right positive at degree Sal test: positive right / positive left. Severe tenderness over the Sacroiliac joint on the Right / Left sides Gaenslen test: positive bilaterally Seated flexion test: positive bilaterally. Sacral spine : Severe tenderness over the Sacroiliac joint: right side / left side Range of motion: Flexion of the lumbar spine <60 degrees Range of motion: Extension of the lumbar spine <20 degrees Gaenslen's Test positive Nick's Test positive Sal test: positive right side / left side Thigh Thrust Test Sacral Thrust Test Assessment/ Plan : Cutaneous pain secondary to SLE nodules and incisional wounds Recommendation to reduce frequency of Dilaudid 1mg IVP q3h while an inpatient. Upon discharge, will not fill Dilaudid IV. Will continue MS Contin 15mg BID and Neurontin 300mg TID. Will Add Narcan 2mg IM q2m prn loss of consciousness or respiratory distress. Risks, benefits of procedure discussed and patient verbalized understanding. Denies aspirin or anti- coagulant use or medical history of diabetes. Protocol for discontinuation/ continuation of medications girma procedure discussed. All questions answered. I have spent greater than 30 minutes on patient care today. Dr Barcenas was available by phone for the evaluation of this patient. The time was used to review the medical records including relevant urine studies and Prescription history (MAPs), review of the available imaging, evaluation and examination of the patient, coordination of care with the medical staff and if applicable referring physicians, as well as creation of the medical record - Pain Location Left Arm Non-Pharmacological Interventions: Darkened Room, Position/Reposition Pharmacological Interventions: Discuss Pain Med Options PQRS Narrative: Do You Want the Pneumonia No Vaccine AT THIS TIME? Blood Pressure [Right Arm] 117/77 Blood Pressure 132/107 Pain Intensity [Left Arm] 10 Pain Intensity 7 Pain Scale Used Numeric (1 - 10) Scale Used see MAR Home Medications: Ambulatory Orders Alendronate Sodium [Fosamax] 70 mg PO TH 05/30/22 Morphine Sulfate ER [Ms Contin] 15 mg PO Q12H 05/30/22 Naloxone HCl [Narcan] 4 mg NASAL ONCE PRN 05/30/22 Ondansetron [Zofran] 4 mg PO TID PRN 05/30/22 Sennosides [Senokot] 8.6 mg PO DAILY PRN 05/30/22 metHOTREXate sodium [Methotrexate] 15 mg PO TH 05/30/22 polyethylene glycoL 3350 [Miralax] 17 gm PO DAILY PRN 05/30/22 FLUoxetine HCL [PROzac] 20 mg PO DAILY #30 cap 05/31/22 predniSONE [Deltasone] 40 mg PO DAILY #0 05/31/22 Acetaminophen Tab [Tylenol] 325 mg PO Q6HR PRN #20 tab 06/11/22 Apixaban [Eliquis] 5 mg PO BID #60 tab 06/11/22 Ciprofloxacin HCl [Cipro] 500 mg PO Q12HR 10 Days #20 tab 06/11/22 Doxycycline [Vibramycin] 100 mg PO BID 10 Days #20 capsule 06/11/22 FLUoxetine HCL [PROzac] 40 mg PO DAILY #60 cap 06/11/22 Folic Acid 1 mg PO DAILY #30 tab 06/11/22 Gabapentin [Neurontin] 300 mg PO BID #60 cap 06/11/22 Ibuprofen [Motrin] 400 mg PO Q6HR PRN #10 tab 06/11/22 OLANZapine [ZyPREXA] 7.5 mg PO HS #30 tab 06/11/22 Omeprazole 20 mg PO DAILY #30 cap 06/11/22 Controlled Substance Measures - Controlled Substance Measures Is patient prescribed a controlled substance at discharge?: No
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
--- NOTE | 2022-06-11 19:31 | US ---
EXAMINATION TYPE: US venous doppler duplex LE RT DATE OF EXAM: 06/11/2022 6:57 PM COMPARISON: 05/30/22 CLINICAL HISTORY: poss DVT. Rt leg pain. Pt is on blood thinners SIDE PERFORMED: Right TECHNIQUE: The lower extremity deep venous system is examined utilizing real time linear array sonog jasmina with graded compression, doppler sonography and color-flow sonography. VESSELS IMAGED: Common Femoral Vein Deep Femoral Vein Greater Saphenous Vein * Femoral Vein Popliteal Vein Small Saphenous Vein * Proximal Calf Veins (* superficial vessels) Patient states she gets calcium deposits in her skin that cause extreme pain. Patient could not to lerate compression. The right groin was too sensitive, so unable to visualize CFV and GSV junction an d DFV. Right Leg: Visualized portions appear negative for DVT IMPRESSION: No evidence of deep vein thrombosis in the right leg.
[2022-06-11] MEDS: MELATONIN 3 MG TABLET PO SCH (20:03)
[2022-06-11] MEDS: OLANZapine 7.5 MG TAB PO SCH (20:07)
[2022-06-12] MEDS: VANCOMYCIN 1,250 MG in SODIUM CHLORIDE 0.9% 250 ML IVPB SCH ×2 (00:12→06:51)
[2022-06-12] MEDS: HYDROmorphone 1 MG/ML 1 ML SYRINGE IVP PRN ×6 (01:10→17:00)
[2022-06-12] MEDS: CEFEPIME 2 GM in SODIUM CHLORIDE 0.9% 100 ML IVPB SCH ×2 (02:25→07:52)
[2022-06-12] MEDS ORDERED: VANCOMYCIN TROUGH DUE 1 EACH MISC MISCELLANE ONE (05:00)
[2022-06-12 05:54] LABS: African American GFR (CKD) >90 (>60 ml/min/1.73 sqM); Anion Gap 7 mmol/L; Blood Urea Nitrogen 9 mg/dL (7-17); Calcium 8.2 mg/dL (8.4-10.2); Carbon Dioxide 22 mmol/L (22-30); Chloride 105 mmol/L (98-107); Glucose 125 mg/dL (74-99); Non-African American GFR(CKD) >90 (>60 ml/min/1.73 sqM); Potassium 3.9 mmol/L (3.5-5.1); Sodium 134 mmol/L (137-145)
[2022-06-12 07:50] VITALS: RESP 16
--- NOTE | 2022-06-12 07:50 | P.PN ---
Subjective Progress Note Date: 06/11/22 Principal diagnosis: Bilateral upper extremity wound and cellulitis Patient is a 32-year-old -Citizen Of [place] female with a past medical history significant for lupus in this patient to have a nonhealing wound to bilateral upper extremity is significantly hard skin from calcinosis, with a recent culture positive for MRSA patient did left AGAINST MEDICAL ADVICE now presenting back to the hospital worsening wound and pain. On today's evaluation that is 06/11/2022, the patient denies any fever or chills, the patient is still pain to bilateral upper extremity wound area and pain medicine has been consulted, the patient denies having any chest pain shortness of cough no abdominal pain or diarrhea Objective - Vital Signs Vital signs: Vital Signs Temp 99.1 F 06/11/22 08:45 Pulse 80 06/11/22 08:45 Resp 16 06/11/22 08:45 BP 97/62 06/11/22 08:45 Pulse Ox 100 06/11/22 08:45 FiO2 Intake & Output 06/10/22 06/11/22 06/11/22 18:59 06:59 18:59 Intake Total 827 120 Balance 827 120 Intake: Intake, IV Titration 350 Amount Cefepime 2 gm In Sodium 100 Chloride 0.9% 100 ml @ 25 mls/hr IVPB Q8HR JEAN CLAUDE Rx# :[id number] Vancomycin 1,250 mg In 250 Sodium Chloride 0.9% 250 ml @ 125 mls/hr IVPB Q8H JEAN CLAUDE Rx#:[id number] Oral 477 120 Other: Voiding Method Toilet Toilet # Voids 1 3 - Exam GENERAL DESCRIPTION: Middle-aged female lying in bed in no distress RESPIRATORY SYSTEM: Unlabored breathing , decreased breath sounds at bases HEART: S1 S2 regular rate and rhythm , ABDOMEN: Soft , no tenderness EXTREMITIES: Bilateral upper arm slightly decreased in size and less slough tissue or surrounding redness - Labs CBC & Chem 7: 06/09/22 10:32 06/12/22 05:19 Labs: Abnormal Lab Results - Last 24 Hours (Table) 06/11/22 Range/Units 06:34 Sodium 135 L (137-145) mmol/L BUN 6 L (7-17) mg/dL Creatinine 0.45 L (0.52-1.04) mg/dL Glucose 143 H (74-99) mg/dL Calcium 8.0 L (8.4-10.2) mg/dL Microbiology - Last 24 Hours (Table) 06/06/22 15:33 Blood Culture - Preliminary Blood No Growth after 96 hours 06/06/22 15:16 Blood Culture - Preliminary Blood No Growth after 96 hours Assessment and Plan (1) Abscess of multiple sites Current Visit: Yes Status: Acute Code(s): L02.91 - CUTANEOUS ABSCESS, UNSPECIFIED SNOMED Code(s): 353733779 Plan: 1patient with bilateral upper extremity wounds related to underlying rheumatological disorder and concern for possible secondary infection as recent culture positive for MRSA with nonhealing because of noncompliance of the patient as she left AGAINST MEDICAL ADVICE last week. 2positive blood culture with staph epi possible skin contaminant however the patient do have a port and the blood cultures done this admission has been negative so far 3local cultures currently growing MRSA and Proteus mirabilis 4patient seemed to have shown some clinical improvement with vancomycin pharmacy and cefepime , plan is to finish therapy with oral Cipro and doxycycline 10 days 5local wound care will be switched over to Aquacel silver dressing changed every 48 hours Time with Patient: Less than 30
[2022-06-12] MEDS: MORPHINE SULFATE ER 15 MG TABLET PO SCH (07:52)
[2022-06-12] MEDS: hydrOXYzine pamoate 25 MG CAP PO PRN (07:53)
[2022-06-12] MEDS: PANTOPRAZOLE 40 MG TABLET PO SCH (07:53)
[2022-06-12] MEDS: APIXABAN 5 MG TAB PO SCH (07:54)
[2022-06-12] MEDS: GABAPENTIN 300 MG CAP PO SCH (07:54)
[2022-06-12] MEDS: FLUoxetine HCL 20 MG CAP PO SCH (07:54)
[2022-06-12] MEDS: FOLIC ACID 1 MG TAB PO SCH (07:54)
[2022-06-12] MEDS: NICOTINE 21MG/24HR PATCH TRANSDERM SCH (10:31)
[2022-06-12 15:17] VITALS: BP 126/81; PULSE 89; TEMP 98.9
[2022-06-12] MEDS: MORPHINE SULFATE IR 15 MG TABLET PO PRN (15:17)
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
[2022-06-13] MEDS ORDERED: VANCOMYCIN TROUGH DUE 1 EACH MISC MISCELLANE ONE (13:00)
== END 2022-06-12 17:38 | disposition home health service (06) | DRG 593 ==
LOC: EC 13:21 → EEVIPCON 18:38 → 3SCARD 18:38
PROVIDERS: ADMIT Hospitalist; ATTEND Hospitalist
DX: L98.499 Non-pressure chronic ulcer of skin of other sites with unspecified severity (principal); F32.3 Major depressive disorder, single episode, severe with psychotic features; M33.13 Other dermatomyositis without myopathy; G89.4 Chronic pain syndrome; F41.9 Anxiety disorder, unspecified; I48.0 Paroxysmal atrial fibrillation; F32.A Depression, unspecified; M32.9 Systemic lupus erythematosus, unspecified; Z53.29 Procedure and treatment not carried out because of patient's decision for other reasons; Z91.19 Patient's noncompliance with other medical treatment and regimen; Z59.01 Sheltered homelessness; B96.4 Proteus (mirabilis) (morganii) as the cause of diseases classified elsewhere; B95.62 Methicillin resistant Staphylococcus aureus infection as the cause of diseases classified elsewhere; E11.9 Type 2 diabetes mellitus without complications; F17.210 Nicotine dependence, cigarettes, uncomplicated; Z79.01 Long term (current) use of anticoagulants; Z79.83 Long term (current) use of bisphosphonates; Z79.899 Other long term (current) drug therapy; Z86.711 Personal history of pulmonary embolism; Z28.310 Unvaccinated for COVID-19; Z79.891 Long term (current) use of opiate analgesic; Z79.52 Long term (current) use of systemic steroids; Z56.0 Unemployment, unspecified
CPT/HCPCS: 36415; 71046; 71275; 80048; 80053; 80202; 83605; 83735; 84484; 84703; 85025; 85379; 85610; 85730; 87040; 87070; 87077; 87186; 87205; 93005; 93306; 96374; 96375; 99285